=== PATIENT | male | born 1965 | race Caucasian/White ===

== ENCOUNTER 2018-10-09 13:30 | Emergency (ER) | payer OTHER, SELFPAY ==
[2018-10-09 13:35] VITALS: BP 145/92; PULSE 99; RESP 18; TEMP 36.4; O2SAT 97; BMI 42.5
--- NOTE | 2018-10-09 13:40 | DI.RAD.S_ITS ---
PROCEDURE: XR RIBS LT MIN 3V W CXR1V INDICATIONS: fall,left rib pain TECHNIQUE: 3 views of the left ribs were acquired, along with a single view chest. COMPARISON: None. FINDINGS: Surgical changes and devices: None. Bones and chest wall: No fractures or dislocations. No suspicious bony lesions. Overlying soft tissues appear unremarkable. Lungs and pleura: No pleural effusions or pneumothorax. Lungs appear clear. Mediastinum: Mediastinal contours appear normal. Heart size is normal. IMPRESSION: No visualized acute fracture or dislocation. However, if clinical concern and/or pain persist, short interval imaging followup in 7-10 days is recommended, as occult injury cannot be definitively excluded. Dictated by: Lisette Louis M.D. on 10/09/2018 at 14:08 Approved by: Lisette Louis M.D. on 10/09/2018 at 14:09
--- NOTE | 2018-10-09 14:00 | ED.FALL ---
HPI - Fall <ALEJANDRO Sheridan - Last Filed: 10/09/18 21:52> General Chief Complaint: Fall Stated Complaint: FALL LEFT SIDE MID BACK PAIN HIP PAIN Time Seen by Provider: 10/09/18 13:52 Source: patient Mode of arrival: ambulatory Limitations: no limitations History of Present Illness HPI Narrative: 53-year-old male with history of hypertension and chronic pain that currently uses E cigarette no cigarettes here for complaint of pain to his left ribcage after ground level fall yesterday. He states that he slipped while walking down front porch yesterday. He states that he landed on his left side. Pain is to the lateral left ribcage. He denies any head injury. No neck pain. No loss of consciousness. He is ambulatory into the emergency room. Increased pain with deep inspiration and movement of that area. He denies any shortness of breath no chest pain other than the left lateral ribcage area. No other concerns or complaints at this timeframe. MD complaint: fall Related Data Home Medications Medication Instructions Recorded Confirmed acetaminophen 650 mg PO Q4HP PRN #0 10/31/17 aspirin 325 mg PO QDAY #0 10/31/17 atorvastatin [Lipitor] 20 mg PO BEDTIME #0 10/31/17 10/09/18 cyclobenzaprine 10 mg PO #0 10/31/17 ibuprofen 800 mg PO TIDP PRN #0 10/31/17 lisinopril-hydrochlorothiazide 1 tab PO DAILY #0 10/31/17 10/09/18 methadone 10 mg PO BID PRN 10/09/18 10/09/18 testosterone cypionate 10/09/18 [Depo-Testosterone] Allergies Allergy/AdvReac Type Severity Reaction Status Date / Time No Known Drug Allergies Allergy Verified 10/09/18 13:35 Review of Systems <ALEJANDRO Sheridan - Last Filed: 10/09/18 21:52> Constitutional Denies chills, Denies fever(s), Denies lethargy and Denies weakness Eyes Denies change in vision, Denies eye discharge, Denies irritation and Denies loss of vision Cardiovascular Denies chest pain, Denies irregular heart rhythm, Denies lightheadedness, Denies palpitations, Denies dyspnea, Denies dyspnea on exertion and Denies orthopnea Respiratory Denies cough, Denies dyspnea, Denies dyspnea on exertion and Denies wheezing Gastrointestinal Gastrointestinal: Denies abdominal pain, Denies change in bowel habits, Denies diarrhea, Denies nausea and Denies vomiting Genitourinary Denies hematuria, Denies flank pain, Denies urinary incontinence and Denies urinary urgency Musculoskeletal Comments: Left ribcage pain Integumentary/Breasts Denies pruritus, Denies erythema, Denies rash and Denies wounds Neurologic Denies confusion, Denies loss of vision and Denies weakness Psychiatric Denies anxiety, Denies confusion, Denies depression, Denies homicidal ideation and Denies suicidal ideation Endocrine Denies palpitations Hematologic/Lymphatic Denies easy bruising Allergic/Immunologic Denies wheezing Exam <ALEJANDRO Sheridan - Last Filed: 10/09/18 21:52> Initial Vital Signs Initial Vital Signs: Vital Signs Temperature 97.6 F 10/09/18 13:35 Pulse Rate 99 H 10/09/18 13:35 Respiratory Rate 18 10/09/18 13:35 Blood Pressure 145/92 H 10/09/18 13:35 Pulse Oximetry 97 10/09/18 13:35 Const General: cooperative and well developed Nutritional Appearance: well nourished Orientation: alert, awake, oriented x3 and not confused [facility] Mouth: oral mucosae normal and moist mucous membranes Eyes Conjunctivae: conjunctivae normal Sclera: sclerae normal Pupils: PERRL EOM: EOM intact bilaterally Chest Other: Left lateral rib cage with no signs of trauma. No ecchymosis. No swelling. No deformities. Resp Effort & Inspection: normal respiratory effort, able to speak in complete sentences, no respiratory distress and no use of accessory muscles Auscultation: clear to auscultation bilaterally, no rales, no rhonchi and no wheezes Cardio Rate: regular rate Rhythm: regular rhythm Heart Sounds: no click, no gallops, no murmurs and no rubs Pulses: normal peripheral pulses Skin General: no rashes or lesions noted, No jaundice and No petechiae Neuro General: alert, oriented x3, gait normal and no focal motor deficits Speech: speech normal <Camilo Davis DO - Last Filed: 10/10/18 18:22> Initial Vital Signs Initial Vital Signs: Vital Signs Temperature 97.6 F 10/09/18 13:35 Pulse Rate 99 H 10/09/18 13:35 Respiratory Rate 18 02/12/19 13:35 Blood Pressure 145/92 H 10/09/18 13:35 Pulse Oximetry 97 10/09/18 13:35 PFSH <ALEJANDRO Sheridan - Last Filed: 10/09/18 21:52> Social History Smoking Status: Current every day smoker Social History Smoking Status: Current every day smoker Course <ALEJANDRO Sheridan - Last Filed: 10/09/18 21:52> Orders Ordered: ED Orders 10/09/18 13:40 XR ribs LT min 3V w CXR1V Stat Vital Signs - 8 hr 10/09/18 13:35 Temperature 97.6 F Pulse Rate 99 H Respiratory Rate 18 Blood Pressure 145/92 H Pulse Oximetry 97 <Camilo Davis DO - Last Filed: 10/10/18 18:22> Orders Ordered: ED Orders 10/09/18 13:40 XR ribs LT min 3V w CXR1V Stat Vital Signs - 8 hr 10/09/18 13:35 Temperature 97.6 F Pulse Rate 99 H Respiratory Rate 18 Blood Pressure 145/92 H Pulse Oximetry 97 MDM - Fall <ALEJANDRO Sheridan - Last Filed: 10/09/18 21:52> Imaging Data Rib x-ray: Radiologist's impression: [address] [address] XRay Report Signed Patient: Emiliano Almanzar [facility]#: [id number] : 1965Acct:[id number] Age/Sex: 53 / MDate of Service: 10/09/18 Loc: ED Accession Number: [id number] Procedure: XR ribs LT min 3V w CXR1V Ordering Provider: Camilo Davis D.O. PROCEDURE: XR RIBS LT MIN 3V W CXR1V INDICATIONS: fall,left rib pain TECHNIQUE: 3 views of the left ribs were acquired, along with a single view chest. COMPARISON: None. FINDINGS: Surgical changes and devices: None. Bones and chest wall: No fractures or dislocations. No suspicious bony lesions. Overlying soft tissues appear unremarkable. Lungs and pleura: No pleural effusions or pneumothorax. Lungs appear clear. Mediastinum: Mediastinal contours appear normal. Heart size is normal. IMPRESSION: No visualized acute fracture or dislocation. However, if clinical concern and/or pain persist, short interval imaging followup in 7-10 days is recommended, as occult injury cannot be definitively excluded. Dictated by: Lisette Louis M.D. on 10/09/2018 at 14:08 Approved by: Lisette Louis M.D. on 10/09/2018 at 14:09 [facility] Narrative Medical decision making narrative: X-ray of the left ribcage was obtained was negative for any acute fractures. Signs and symptoms presents as contusion to the left ribcage. Use over the counter ibuprofen and currently prescribed pain management regimen as needed for any discomfort. Follow up with primary care provider next week for re-evaluation. For any worsening symptoms return to the emergency room. Discharge Plan Departure Patient Disposition: Home Clinical Impression: Contusion of rib on left side Qualifiers: Encounter type: initial encounter Qualified Code(s): S20.212A - Contusion of left front wall of thorax, initial encounter Discharge Date/Time: 10/09/18 15:04 Interventions: ED Discharge Assessment Last Done: 10/09/18 14:50 Instructions: DI for Rib Contusion Activity Restrictions/Additional Instructions: X-ray of the left ribcage was obtained was negative for any acute fractures. Signs and symptoms presents as contusion to the left ribcage. Use over the counter ibuprofen and currently prescribed pain management regimen as needed for any discomfort. Follow up with primary care provider next week for re-evaluation. For any worsening symptoms return to the emergency room. Prescriptions: No Action atorvastatin [Lipitor] 20 MG tablet 20 mg PO BEDTIME Qty: 0 RF: 0 cyclobenzaprine 10 MG tablet 10 mg PO Qty: 0 RF: 0 lisinopril-hydrochlorothiazide 20 MG/12.5 MG tablet 1 tab PO DAILY Qty: 0 RF: 0 acetaminophen 325 MG tablet 650 mg PO Q4HP PRNQty: 0 RF: 0 ibuprofen 800 MG tablet 800 mg PO TIDP PRNQty: 0 RF: 0 aspirin 325 MG tablet,delayed release (DR/EC) 325 mg PO QDAY Qty: 0 RF: 0 methadone 10 mg tablet 10 mg PO BID PRN (Reason: Pain, Severe) RF: 0 testosterone cypionate [Depo-Testosterone] 100 mg/mL oil RF: 0 Referrals: Cassi Johnson DO [Primary Care Provider] - <Camilo Davis DO - Last Filed: 10/10/18 18:22> Cosign ED Attending Óscar Attestation: I was immediately available in the department for consultation. Documentation has been reviewed. I agree with assessment and plan.
--- NOTE | 2018-10-09 14:04 | ED_ITS ---
HPI - Fall <ALEJANDRO Sheridan - Last Filed: 10/09/18 21:52> General Chief Complaint: Fall Stated Complaint: FALL LEFT SIDE MID BACK PAIN HIP PAIN Time Seen by Provider: 10/09/18 13:52 Source: patient Mode of arrival: ambulatory Limitations: no limitations History of Present Illness HPI Narrative: 53-year-old male with history of hypertension and chronic pain that currently uses E cigarette no cigarettes here for complaint of pain to his left ribcage after ground level fall yesterday. He states that he slipped while walking down front porch yesterday. He states that he landed on his left side. Pain is to the lateral left ribcage. He denies any head injury. No neck pain. No loss of consciousness. He is ambulatory into the emergency room. Increased pain with deep inspiration and movement of that area. He denies any shortness of breath no chest pain other than the left lateral ribcage area. No other concerns or complaints at this timeframe. MD complaint: fall Related Data Home Medications Medication Instructions Recorded Confirmed acetaminophen 650 mg PO Q4HP PRN #0 10/31/17 aspirin 325 mg PO QDAY #0 10/31/17 atorvastatin [Lipitor] 20 mg PO BEDTIME #0 10/31/17 10/09/18 cyclobenzaprine 10 mg PO #0 10/31/17 ibuprofen 800 mg PO TIDP PRN #0 10/31/17 lisinopril-hydrochlorothiazide 1 tab PO DAILY #0 10/31/17 10/09/18 methadone 10 mg PO BID PRN 10/09/18 10/09/18 testosterone cypionate 10/09/18 [Depo-Testosterone] Allergies Allergy/AdvReac Type Severity Reaction Status Date / Time No Known Drug Allergies Allergy Verified 10/09/18 13:35 Review of Systems <ALEJANDRO Sheridan - Last Filed: 10/09/18 21:52> Constitutional Denies chills, Denies fever(s), Denies lethargy and Denies weakness Eyes Denies change in vision, Denies eye discharge, Denies irritation and Denies loss of vision Cardiovascular Denies chest pain, Denies irregular heart rhythm, Denies lightheadedness, Denies palpitations, Denies dyspnea, Denies dyspnea on exertion and Denies orthopnea Respiratory Denies cough, Denies dyspnea, Denies dyspnea on exertion and Denies wheezing Gastrointestinal Gastrointestinal: Denies abdominal pain, Denies change in bowel habits, Denies diarrhea, Denies nausea and Denies vomiting Genitourinary Denies hematuria, Denies flank pain, Denies urinary incontinence and Denies urinary urgency Musculoskeletal Comments: Left ribcage pain Integumentary/Breasts Denies pruritus, Denies erythema, Denies rash and Denies wounds Neurologic Denies confusion, Denies loss of vision and Denies weakness Psychiatric Denies anxiety, Denies confusion, Denies depression, Denies homicidal ideation and Denies suicidal ideation Endocrine Denies palpitations Hematologic/Lymphatic Denies easy bruising Allergic/Immunologic Denies wheezing Exam <ALEJANDRO Sheridan - Last Filed: 10/09/18 21:52> Initial Vital Signs Initial Vital Signs: Vital Signs Temperature 97.6 F 10/09/18 13:35 Pulse Rate 99 H 10/09/18 13:35 Respiratory Rate 18 10/09/18 13:35 Blood Pressure 145/92 H 10/09/18 13:35 Pulse Oximetry 97 10/09/18 13:35 Const General: cooperative and well developed Nutritional Appearance: well nourished Orientation: alert, awake, oriented x3 and not confused [facility] Mouth: oral mucosae normal and moist mucous membranes Eyes Conjunctivae: conjunctivae normal Sclera: sclerae normal Pupils: PERRL EOM: EOM intact bilaterally Chest Other: Left lateral rib cage with no signs of trauma. No ecchymosis. No swelling. No deformities. Resp Effort & Inspection: normal respiratory effort, able to speak in complete sentences, no respiratory distress and no use of accessory muscles Auscultation: clear to auscultation bilaterally, no rales, no rhonchi and no wheezes Cardio Rate: regular rate Rhythm: regular rhythm Heart Sounds: no click, no gallops, no murmurs and no rubs Pulses: normal peripheral pulses Skin General: no rashes or lesions noted, No jaundice and No petechiae Neuro General: alert, oriented x3, gait normal and no focal motor deficits Speech: speech normal <Camilo Davis DO - Last Filed: 10/10/18 18:22> Initial Vital Signs Initial Vital Signs: Vital Signs Temperature 97.6 F 10/09/18 13:35 Pulse Rate 99 H 10/09/18 13:35 Respiratory Rate 18 02/12/19 13:35 Blood Pressure 145/92 H 10/09/18 13:35 Pulse Oximetry 97 10/09/18 13:35 PFSH <ALEJANDRO Sheridan - Last Filed: 10/09/18 21:52> Social History Smoking Status: Current every day smoker Social History Smoking Status: Current every day smoker Course <ALEJANDRO Sheridan - Last Filed: 10/09/18 21:52> Orders Ordered: ED Orders 10/09/18 13:40 XR ribs LT min 3V w CXR1V Stat Vital Signs - 8 hr 10/09/18 13:35 Temperature 97.6 F Pulse Rate 99 H Respiratory Rate 18 Blood Pressure 145/92 H Pulse Oximetry 97 <Camilo Davis DO - Last Filed: 10/10/18 18:22> Orders Ordered: ED Orders 10/09/18 13:40 XR ribs LT min 3V w CXR1V Stat Vital Signs - 8 hr 10/09/18 13:35 Temperature 97.6 F Pulse Rate 99 H Respiratory Rate 18 Blood Pressure 145/92 H Pulse Oximetry 97 MDM - Fall <ALEJANDRO Sheridan - Last Filed: 10/09/18 21:52> Imaging Data Rib x-ray: Radiologist's impression: [address] [address] XRay Report Signed Patient: Emiliano Almanzar [facility]#: [id number] : 1965Acct:[id number] Age/Sex: 53 / MDate of Service: 10/09/18 Loc: ED Accession Number: [id number] Procedure: XR ribs LT min 3V w CXR1V Ordering Provider: Camilo Davis D.O. PROCEDURE: XR RIBS LT MIN 3V W CXR1V INDICATIONS: fall,left rib pain TECHNIQUE: 3 views of the left ribs were acquired, along with a single view chest. COMPARISON: None. FINDINGS: Surgical changes and devices: None. Bones and chest wall: No fractures or dislocations. No suspicious bony lesions. Overlying soft tissues appear unremarkable. Lungs and pleura: No pleural effusions or pneumothorax. Lungs appear clear. Mediastinum: Mediastinal contours appear normal. Heart size is normal. IMPRESSION: No visualized acute fracture or dislocation. However, if clinical concern and/or pain persist, short interval imaging followup in 7-10 days is recommended, as occult injury cannot be definitively excluded. Dictated by: Lisette Louis M.D. on 10/09/2018 at 14:08 Approved by: Lisette Loius M.D. on 10/09/2018 at 14:09 [facility] Narrative Medical decision making narrative: X-ray of the left ribcage was obtained was negative for any acute fractures. Signs and symptoms presents as contusion to the left ribcage. Use over the counter ibuprofen and currently prescribed pain management regimen as needed for any discomfort. Follow up with primary care provider next week for re-evaluation. For any worsening symptoms return to the emergency room. Discharge Plan Departure Patient Disposition: Home Clinical Impression: Contusion of rib on left side Qualifiers: Encounter type: initial encounter Qualified Code(s): S20.212A - Contusion of left front wall of thorax, initial encounter Discharge Date/Time: 10/09/18 15:04 Interventions: ED Discharge Assessment Last Done: 10/09/18 14:50 Instructions: DI for Rib Contusion Activity Restrictions/Additional Instructions: X-ray of the left ribcage was obtained was negative for any acute fractures. Signs and symptoms presents as contusion to the left ribcage. Use over the counter ibuprofen and currently prescribed pain management regimen as needed for any discomfort. Follow up with primary care provider next week for re- evaluation. For any worsening symptoms return to the emergency room. Prescriptions: No Action atorvastatin [Lipitor] 20 MG tablet 20 mg PO BEDTIME Qty: 0 RF: 0 cyclobenzaprine 10 MG tablet 10 mg PO Qty: 0 RF: 0 lisinopril-hydrochlorothiazide 20 MG/12.5 MG tablet 1 tab PO DAILY Qty: 0 RF: 0 acetaminophen 325 MG tablet 650 mg PO Q4HP PRNQty: 0 RF: 0 ibuprofen 800 MG tablet 800 mg PO TIDP PRNQty: 0 RF: 0 aspirin 325 MG tablet,delayed release (DR/EC) 325 mg PO QDAY Qty: 0 RF: 0 methadone 10 mg tablet 10 mg PO BID PRN (Reason: Pain, Severe) RF: 0 testosterone cypionate [Depo-Testosterone] 100 mg/mL oil RF: 0 Referrals: Cassi Johnson DO [Primary Care Provider] - <Camilo Davis DO - Last Filed: 10/10/18 18:22> Cosign ED Attending Óscar Attestation: I was immediately available in the department for consultation. Documentation has been reviewed. I agree with assessment and plan.
== END 2018-10-09 15:04 | disposition home or self-care (01) ==
PROVIDERS: Emergency Provider Nurse Practitioner Family; Family Provider Family Medicine; PCP Family Medicine
DX: S20.212A Contusion of left front wall of thorax, initial encounter (principal); W18.43XA Slipping, tripping and stumbling without falling due to stepping from one level to another, initial encounter
CPT/HCPCS: 71101; 99282; 99283

== ENCOUNTER 2018-12-24 15:36 | Emergency (ER) | payer OTHER, SELFPAY ==
[2018-12-24 15:54] VITALS: BP 136/88; PULSE 112; RESP 18; TEMP 37.1; O2SAT 97; BMI 41.4
--- NOTE | 2018-12-24 15:59 | DI.RAD.S_ITS ---
PROCEDURE: XR CHEST 2V INDICATIONS: upper resp symptoms TECHNIQUE: 2 views of the chest were acquired. COMPARISON: None. FINDINGS: Surgical changes and devices: None. Lungs and pleura: Lungs are clear. No pleural effusions or pneumothorax. Mediastinum: Mediastinal contours are normal. Heart size is normal. Bones and chest wall: No suspicious bony abnormalities. Soft tissues appear unremarkable. IMPRESSION: Normal for age, source of current pneumonia symptoms is not seen. Dictated by: Nabil Dominguez M.D. on 12/24/2018 at 16:15 Approved by: Nabil Dominguez M.D. on 12/24/2018 at 16:15
--- NOTE | 2018-12-24 16:29 | ED.URI ---
HPI - URI/Sore Throat <Mariela Mcelroy PA-C - Last Filed: 12/24/18 22:21> General Chief Complaint: Upper Respiratory Symptoms Stated Complaint: sore throat,cough Time Seen by Provider: 12/24/18 16:21 Source: patient Mode of arrival: ambulatory Limitations: no limitations History of Present Illness HPI Narrative: This 53-year-old male comes to ED secondary to concern for recurrent pneumonia. He states that last night he went to bed with some nonspecific fatigue and malaise, then he woke up several times in the night coughing up phlegm. He has been bringing up more sputum today and states his voice has been hoarse. He states that there were a few rust-colored specks in his sputum after 1 episode of hard coughing, thought just related to that. He states that during 1 of his cough fits his chest started to feel achy, like a slight pressure. He states he has history of reactive airways and does not have any acute wheeze or shortness of breath, has not used his nebulizer at home. He describes the chest discomfort as and air hunger sensation rather than a pain. he states that he has had some nasal congestion for a couple of days and did have some generalized body aches yesterday with chills and sweats this morning (no temperatures taking). He states other family members have been sick prior to him with upper respiratory symptoms. he denies any recent travel. He denies any nausea or lightheadedness and has been going about his usual activities today. He denies any swelling or pain in the extremities or any other new symptoms on systems review. He notes he has been taking Sudafed for nasal congestion Related Data Home Medications Medication Instructions Recorded Confirmed acetaminophen 650 mg PO Q4HP PRN #0 10/31/17 aspirin 325 mg PO QDAY #0 10/31/17 atorvastatin [Lipitor] 20 mg PO BEDTIME #0 10/31/17 12/24/18 cyclobenzaprine 10 mg PO #0 10/31/17 ibuprofen 800 mg PO TIDP PRN #0 10/31/17 lisinopril-hydrochlorothiazide 1 tab PO DAILY #0 10/31/17 12/24/18 methadone 10 mg PO BID PRN 10/09/18 12/24/18 metformin 750 mg PO BID 12/24/18 12/24/18 testosterone cypionate 12/24/18 [Depo-Testosterone] Previous Rx's Medication Instructions Recorded albuterol sulfate 2.5 mg INHALATION Q2H PRN #90 ml 12/24/18 promethazine-codeine 5 ml PO Q4-6H PRN #118 ml 12/24/18 Allergies Allergy/AdvReac Type Severity Reaction Status Date / Time No Known Drug Allergies Allergy Verified 10/09/18 13:35 Review of Systems <Mariela Mcelroy PA-C - Last Filed: 12/24/18 22:21> Review of Systems ROS Unobtainable: All systems reviewed & are unremarkable except as noted in HPI and below PFSH <Mariela Mcelroy PA-C - Last Filed: 12/24/18 22:21> Medical History (Updated 12/24/18 @ 18:27 by Mariela Mcelroy PA-C) HTN (hypertension) (Chronic) Hyperlipidemia (Chronic) 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 HEAD: No sinus TTP. EYES: PERRL, EOMI. EARS: Normal auditory canals, TMS intact with normal light reflexes. ORAL CAVITY: Normal oropharynx. THROAT: Mild erythema, no exudate NECK/THYROID: Neck supple, full range of motion, no cervical lymphadenopathy. LUNGS: Clear to auscultation bilaterally, occasional cough on exam. HEART: RRR without murmur, nl S1, S2, no S3 or S4. CHEST: No tenderness to palpation EXTREMITIES: No edema, no calf tenderness Initial Vital Signs Initial Vital Signs: Vital Signs Temperature 98.7 F 12/24/18 15:54 Pulse Rate 112 H 12/24/18 15:54 Respiratory Rate 18 12/24/18 15:54 Blood Pressure 136/88 12/24/18 15:54 Pulse Oximetry 97 12/24/18 15:54 <Maureen Weinstein DO - Last Filed: 12/27/18 07:51> Initial Vital Signs Initial Vital Signs: Vital Signs Temperature 98.7 F 12/24/18 15:54 Pulse Rate 112 H 12/24/18 15:54 Respiratory Rate 18 12/24/18 15:54 Blood Pressure 136/88 12/24/18 15:54 Pulse Oximetry 97 12/24/18 15:54 Course <Mariela Mcelroy PA-C - Last Filed: 12/24/18 22:21> Additional Information: Patient reported improvement following nebulizer treatment. He does have exposure to sick contacts. Suspect his tachycardia may be related to Sudafed use nebulizer treatments well. he does have a history of recurrent pneumonia and will follow up with his PCP in the next 2 days for recheck, agreed to return sooner if any acutely worsening symptoms. Orders Ordered: Discontinued Medications Albuterol (Ventolin) 2.5 mg INH NOW ONE Stop: 12/24/18 17:12 Last Admin: 12/24/18 17:13 Dose: 2.5 mg Albuterol/Ipratropium (Duoneb) 3 ml INH NOW ONE Stop: 12/24/18 17:12 Last Admin: 12/24/18 17:13 Dose: 3 ml Sodium Chloride (Normal Saline 0.9%) 1,000 mls @ 1,000 mls/hr IV BOLUS ONE Stop: 12/24/18 17:47 Last Infusion: 12/24/18 18:26 Dose: 0 mls/hr Admin: 12/24/18 17:01 Dose: 1,000 mls/hr Vital Signs - 8 hr 12/24/18 15:54 12/24/18 16:42 12/24/18 17:13 Temperature 98.7 F Pulse Rate 112 H 117 H 102 H Respiratory Rate 18 24 14 Blood Pressure 136/88 Blood Pressure [Left Arm] 119/67 Pulse Oximetry 97 111 H 98 12/24/18 17:30 12/24/18 18:33 Temperature Pulse Rate 126 H 112 H Respiratory Rate 13 22 Blood Pressure 106/64 Blood Pressure [Left Arm] 109/72 Pulse Oximetry 97 95 <Maureen Weinstein DO - Last Filed: 12/27/18 07:51> Orders Ordered: Discontinued Medications Albuterol (Ventolin) 2.5 mg INH NOW ONE Stop: 12/24/18 17:12 Last Admin: 12/24/18 17:13 Dose: 2.5 mg Albuterol/Ipratropium (Duoneb) 3 ml INH NOW ONE Stop: 12/24/18 17:12 Last Admin: 12/24/18 17:13 Dose: 3 ml Sodium Chloride (Normal Saline 0.9%) 1,000 mls @ 1,000 mls/hr IV BOLUS ONE Stop: 12/24/18 17:47 Last Infusion: 12/24/18 18:26 Dose: 0 mls/hr Admin: 12/24/18 17:01 Dose: 1,000 mls/hr Vital Signs - 8 hr 12/24/18 15:54 12/24/18 16:42 12/24/18 17:13 Temperature 98.7 F Pulse Rate 112 H 117 H 102 H Respiratory Rate 18 24 14 Blood Pressure 136/88 Blood Pressure [Left Arm] 119/67 Pulse Oximetry 97 111 H 98 12/24/18 17:30 12/24/18 18:33 Temperature Pulse Rate 126 H 112 H Respiratory Rate 13 22 Blood Pressure 106/64 Blood Pressure [Left Arm] 109/72 Pulse Oximetry 97 95 MDM - URI/Sore Throat <Mariela Mcelroy PA-C - Last Filed: 12/24/18 22:21> Lab Data Attestation: I reviewed the patient's lab results. Result diagrams: 12/24/18 16:56 12/24/18 16:56 Lab Results 12/24/18 12/24/18 12/24/18 Range/Units 16:56 16:56 16:56 WBC 11.4 H (4.5-11.0) X10^3/uL RBC 5.36 (4.5-5.9) X10^6/uL Hgb 15.8 (13.5-17.5) g/dL Hct 47.0 (41-53) % MCV 87.8 (80-100) fL MCH 29.5 (26-34) PG MCHC 33.5 (30-36) % RDW 13.2 (11.6-14.8) % Plt Count 179 (150-400) X10^3/uL Neut % (Auto) 77.7 H (50-75) % Lymph % (Auto) 12.6 L (25-40) % [place] % (Auto) 7.5 (3-14) % Eos % (Auto) 1.4 L (2-4) % Baso % (Auto) 0.8 (0-2) % Neut # (Auto) 8800 H (3603-0945) /uL Lymph # (Auto) 1400 (1187-3216) /uL [place] # (Auto) 900 (0-900) /uL Eos # (Auto) 200 (0-450) /uL Baso # (Auto) 100 (0-100) /uL PT 10.9 (10.1-12.7) SECONDS INR 0.9 (0.9-1.3) APTT 29 (26.4-36.2) SECONDS D-Dimer (<230) ng/mL Sodium (137-145) mmol/L Potassium (3.4-5.1) mmol/L Chloride (98-107) mmol/L Carbon Dioxide (22-32) mmol/L BUN (9-20) mg/dL Creatinine (0.66-1.25) mg/dL Estimated GFR (>60) mL/min BUN/Creatinine Ratio (6-22) Glucose (70-100) mg/dL Lactate (0.7-2.1) mmol/L Calcium (8.4-10.2) mg/dL Total Bilirubin (0.2-1.3) mg/dL AST (17-59) IU/L ALT (21-72) IU/L Alkaline Phosphatase (38-126) U/L Total Creatine Kinase (55-170) U/L CK-MB (CK-2) (<2.37) ng/mL CK-MB (CK-2) Rel Index (1.5-5.0) % Troponin I (0.01-0.034) ng/mL Total Protein (6.3-8.2) g/dL Albumin (3.5-5.0) g/dL Globulin (1.7-4.1) g/dL Albumin/Globulin Ratio (1.0-2.8) Lipase (23-300) U/L Procalcitonin < 0.05 (<0.5) ng/mL Influenza A & B (PCR) (Negative) 12/24/18 12/24/18 12/24/18 Range/Units 16:56 16:56 16:56 WBC (4.5-11.0) X10^3/uL RBC (4.5-5.9) X10^6/uL Hgb (13.5-17.5) g/dL Hct (41-53) % MCV (80-100) fL MCH (26-34) PG MCHC (30-36) % RDW (11.6-14.8) % Plt Count (150-400) X10^3/uL Neut % (Auto) (50-75) % Lymph % (Auto) (25-40) % [place] % (Auto) (3-14) % Eos % (Auto) (2-4) % Baso % (Auto) (0-2) % Neut # (Auto) (4523-5924) /uL Lymph # (Auto) (5610-5869) /uL [place] # (Auto) (0-900) /uL Eos # (Auto) (0-450) /uL Baso # (Auto) (0-100) /uL PT (10.1-12.7) SECONDS INR (0.9-1.3) APTT (26.4-36.2) SECONDS D-Dimer 205 (<230) ng/mL Sodium 135 L (137-145) mmol/L Potassium 4.0 (3.4-5.1) mmol/L Chloride 94 L (98-107) mmol/L Carbon Dioxide 29 (22-32) mmol/L BUN 11 (9-20) mg/dL Creatinine 1.00 (0.66-1.25) mg/dL Estimated GFR > 60.0 (>60) mL/min BUN/Creatinine Ratio 11.0 (6-22) Glucose 276 H (70-100) mg/dL Lactate 1.7 (0.7-2.1) mmol/L Calcium 10.2 (8.4-10.2) mg/dL Total Bilirubin 0.8 (0.2-1.3) mg/dL AST 30 (17-59) IU/L ALT 66 (21-72) IU/L Alkaline Phosphatase 89 (38-126) U/L Total Creatine Kinase (55-170) U/L CK-MB (CK-2) (<2.37) ng/mL CK-MB (CK-2) Rel Index (1.5-5.0) % Troponin I (0.01-0.034) ng/mL Total Protein 8.0 (6.3-8.2) g/dL Albumin 4.8 (3.5-5.0) g/dL Globulin 3.2 (1.7-4.1) g/dL Albumin/Globulin Ratio 1.5 (1.0-2.8) Lipase 82 (23-300) U/L Procalcitonin (<0.5) ng/mL Influenza A & B (PCR) (Negative) 12/24/18 12/24/18 Range/Units 16:56 16:56 WBC (4.5-11.0) X10^3/uL RBC (4.5-5.9) X10^6/uL Hgb (13.5-17.5) g/dL Hct (41-53) % MCV (80-100) fL MCH (26-34) PG MCHC (30-36) % RDW (11.6-14.8) % Plt Count (150-400) X10^3/uL Neut % (Auto) (50-75) % Lymph % (Auto) (25-40) % [place] % (Auto) (3-14) % Eos % (Auto) (2-4) % Baso % (Auto) (0-2) % Neut # (Auto) (9052-1316) /uL Lymph # (Auto) (8791-0601) /uL [place] # (Auto) (0-900) /uL Eos # (Auto) (0-450) /uL Baso # (Auto) (0-100) /uL PT (10.1-12.7) SECONDS INR (0.9-1.3) APTT (26.4-36.2) SECONDS D-Dimer (<230) ng/mL Sodium (137-145) mmol/L Potassium (3.4-5.1) mmol/L Chloride (98-107) mmol/L Carbon Dioxide (22-32) mmol/L BUN (9-20) mg/dL Creatinine (0.66-1.25) mg/dL Estimated GFR (>60) mL/min BUN/Creatinine Ratio (6-22) Glucose (70-100) mg/dL Lactate (0.7-2.1) mmol/L Calcium (8.4-10.2) mg/dL Total Bilirubin (0.2-1.3) mg/dL AST (17-59) IU/L ALT (21-72) IU/L Alkaline Phosphatase (38-126) U/L Total Creatine Kinase 104 (55-170) U/L CK-MB (CK-2) 1.62 (<2.37) ng/mL CK-MB (CK-2) Rel Index 1.6 (1.5-5.0) % Troponin I < 0.012 (0.01-0.034) ng/mL Total Protein (6.3-8.2) g/dL Albumin (3.5-5.0) g/dL Globulin (1.7-4.1) g/dL Albumin/Globulin Ratio (1.0-2.8) Lipase (23-300) U/L Procalcitonin (<0.5) ng/mL Influenza A & B (PCR) Negative (Negative) ECG Data Attestation: I personally reviewed and interpreted this ECG as follows: (Sinus tachycardia rate 108, normal axis) <Maureen Weinstein DO - Last Filed: 12/27/18 07:51> Lab Data Lab Results 12/24/18 12/24/18 12/24/18 Range/Units 16:56 16:56 16:56 WBC 11.4 H (4.5-11.0) X10^3/uL RBC 5.36 (4.5-5.9) X10^6/uL Hgb 15.8 (13.5-17.5) g/dL Hct 47.0 (41-53) % MCV 87.8 (80-100) fL MCH 29.5 (26-34) PG MCHC 33.5 (30-36) % RDW 13.2 (11.6-14.8) % Plt Count 179 (150-400) X10^3/uL Neut % (Auto) 77.7 H (50-75) % Lymph % (Auto) 12.6 L (25-40) % [place] % (Auto) 7.5 (3-14) % Eos % (Auto) 1.4 L (2-4) % Baso % (Auto) 0.8 (0-2) % Neut # (Auto) 8800 H (1035-6849) /uL Lymph # (Auto) 1400 (4962-7755) /uL [place] # (Auto) 900 (0-900) /uL Eos # (Auto) 200 (0-450) /uL Baso # (Auto) 100 (0-100) /uL PT 10.9 (10.1-12.7) SECONDS INR 0.9 (0.9-1.3) APTT 29 (26.4-36.2) SECONDS D-Dimer (<230) ng/mL Sodium (137-145) mmol/L Potassium (3.4-5.1) mmol/L Chloride (98-107) mmol/L Carbon Dioxide (22-32) mmol/L BUN (9-20) mg/dL Creatinine (0.66-1.25) mg/dL Estimated GFR (>60) mL/min BUN/Creatinine Ratio (6-22) Glucose (70-100) mg/dL Lactate (0.7-2.1) mmol/L Calcium (8.4-10.2) mg/dL Total Bilirubin (0.2-1.3) mg/dL AST (17-59) IU/L ALT (21-72) IU/L Alkaline Phosphatase (38-126) U/L Total Creatine Kinase (55-170) U/L CK-MB (CK-2) (<2.37) ng/mL CK-MB (CK-2) Rel Index (1.5-5.0) % Troponin I (0.01-0.034) ng/mL Total Protein (6.3-8.2) g/dL Albumin (3.5-5.0) g/dL Globulin (1.7-4.1) g/dL Albumin/Globulin Ratio (1.0-2.8) Lipase (23-300) U/L Procalcitonin < 0.05 (<0.5) ng/mL Influenza A & B (PCR) (Negative) 12/24/18 12/24/18 12/24/18 Range/Units 16:56 16:56 16:56 WBC (4.5-11.0) X10^3/uL RBC (4.5-5.9) X10^6/uL Hgb (13.5-17.5) g/dL Hct (41-53) % MCV (80-100) fL MCH (26-34) PG MCHC (30-36) % RDW (11.6-14.8) % Plt Count (150-400) X10^3/uL Neut % (Auto) (50-75) % Lymph % (Auto) (25-40) % [place] % (Auto) (3-14) % Eos % (Auto) (2-4) % Baso % (Auto) (0-2) % Neut # (Auto) (3245-8445) /uL Lymph # (Auto) (2097-3593) /uL [place] # (Auto) (0-900) /uL Eos # (Auto) (0-450) /uL Baso # (Auto) (0-100) /uL PT (10.1-12.7) SECONDS INR (0.9-1.3) APTT (26.4-36.2) SECONDS D-Dimer 205 (<230) ng/mL Sodium 135 L (137-145) mmol/L Potassium 4.0 (3.4-5.1) mmol/L Chloride 94 L (98-107) mmol/L Carbon Dioxide 29 (22-32) mmol/L BUN 11 (9-20) mg/dL Creatinine 1.00 (0.66-1.25) mg/dL Estimated GFR > 60.0 (>60) mL/min BUN/Creatinine Ratio 11.0 (6-22) Glucose 276 H (70-100) mg/dL Lactate 1.7 (0.7-2.1) mmol/L Calcium 10.2 (8.4-10.2) mg/dL Total Bilirubin 0.8 (0.2-1.3) mg/dL AST 30 (17-59) IU/L ALT 66 (21-72) IU/L Alkaline Phosphatase 89 (38-126) U/L Total Creatine Kinase (55-170) U/L CK-MB (CK-2) (<2.37) ng/mL CK-MB (CK-2) Rel Index (1.5-5.0) % Troponin I (0.01-0.034) ng/mL Total Protein 8.0 (6.3-8.2) g/dL Albumin 4.8 (3.5-5.0) g/dL Globulin 3.2 (1.7-4.1) g/dL Albumin/Globulin Ratio 1.5 (1.0-2.8) Lipase 82 (23-300) U/L Procalcitonin (<0.5) ng/mL Influenza A & B (PCR) (Negative) 12/24/18 12/24/18 Range/Units 16:56 16:56 WBC (4.5-11.0) X10^3/uL RBC (4.5-5.9) X10^6/uL Hgb (13.5-17.5) g/dL Hct (41-53) % MCV (80-100) fL MCH (26-34) PG MCHC (30-36) % RDW (11.6-14.8) % Plt Count (150-400) X10^3/uL Neut % (Auto) (50-75) % Lymph % (Auto) (25-40) % [place] % (Auto) (3-14) % Eos % (Auto) (2-4) % Baso % (Auto) (0-2) % Neut # (Auto) (5350-9988) /uL Lymph # (Auto) (6918-1311) /uL [place] # (Auto) (0-900) /uL Eos # (Auto) (0-450) /uL Baso # (Auto) (0-100) /uL PT (10.1-12.7) SECONDS INR (0.9-1.3) APTT (26.4-36.2) SECONDS D-Dimer (<230) ng/mL Sodium (137-145) mmol/L Potassium (3.4-5.1) mmol/L Chloride (98-107) mmol/L Carbon Dioxide (22-32) mmol/L BUN (9-20) mg/dL Creatinine (0.66-1.25) mg/dL Estimated GFR (>60) mL/min BUN/Creatinine Ratio (6-22) Glucose (70-100) mg/dL Lactate (0.7-2.1) mmol/L Calcium (8.4-10.2) mg/dL Total Bilirubin (0.2-1.3) mg/dL AST (17-59) IU/L ALT (21-72) IU/L Alkaline Phosphatase (38-126) U/L Total Creatine Kinase 104 (55-170) U/L CK-MB (CK-2) 1.62 (<2.37) ng/mL CK-MB (CK-2) Rel Index 1.6 (1.5-5.0) % Troponin I < 0.012 (0.01-0.034) ng/mL Total Protein (6.3-8.2) g/dL Albumin (3.5-5.0) g/dL Globulin (1.7-4.1) g/dL Albumin/Globulin Ratio (1.0-2.8) Lipase (23-300) U/L Procalcitonin (<0.5) ng/mL Influenza A & B (PCR) Negative (Negative) Discharge Plan Departure Patient Disposition: Home Clinical Impression: Bronchitis RAD (reactive airway disease) Qualifiers: Asthma severity: mild Asthma persistence: intermittent Asthma complication type: with acute exacerbation Qualified Code(s): J45.21 - Mild intermittent asthma with (acute) exacerbation Discharge Date/Time: 12/24/18 18:35 Interventions: ED Discharge Assessment Last Done: 12/24/18 18:33 Instructions: DI for Acute Bronchitis, DI for Reactive Airway Disease-Adult Activity Restrictions/Additional Instructions: Your testing did not show any acute problem to explain your chest discomfort today such as pneumonia or heart problems, and suspect since this is associated with cough and phlegm that you have bronchitis since others in her household have been sick as well. most of the time, this is due to a virus, and in your case, it exacerbates your reactive airways/asthma symptoms. Please return to the ED as we discussed if you have any acutely worsening symptoms. Otherwise, please follow-up with your PCP in the next couple of days to assess your progress and determine whether a repeat x-ray or further testing is needed. Use your nebulizer as often as needed to help with tight chest. You can use the prescription cough syrup at nighttime but remember this can make you sleepy and not to use during the day. Please add some [id number] guaifenesin (i.e. Mucinex) to help with your chest congestion. Your pulse was somewhat elevated today, however this could be due to you using Sudafed and then also having the nebulizer treatments. Prescriptions: New albuterol sulfate 2.5 mg /3 mL (0.083 %) solution for nebulization 2.5 mg INHALATION Q2H PRN (Reason: shortness of breath or wheezing) Qty: 90 RF: 0 promethazine-codeine 6.25-10 mg/5 mL syrup 5 ml PO Q4-6H PRN (Reason: cough at hs) Qty: 118 RF: 0 No Action atorvastatin [Lipitor] 20 MG tablet 20 mg PO BEDTIME Qty: 0 RF: 0 cyclobenzaprine 10 MG tablet 10 mg PO Qty: 0 RF: 0 lisinopril-hydrochlorothiazide 20 MG/12.5 MG tablet 1 tab PO DAILY Qty: 0 RF: 0 acetaminophen 325 MG tablet 650 mg PO Q4HP PRNQty: 0 RF: 0 ibuprofen 800 MG tablet 800 mg PO TIDP PRNQty: 0 RF: 0 aspirin 325 MG tablet,delayed release (DR/EC) 325 mg PO QDAY Qty: 0 RF: 0 testosterone cypionate [Depo-Testosterone] 200 mg/mL oil RF: 0 metformin 750 mg tablet extended release 24 hr 750 mg PO BID RF: 0 methadone 10 mg tablet 10 mg PO BID PRN (Reason: Pain, Severe) RF: 0 Referrals: Cassi Johnson DO [Primary Care Provider] - <Maureen Weinstein DO - Last Filed: 12/27/18 07:51> Cosign ED Attending Óscar Attestation: I was immediately available in the department for consultation. Documentation has been reviewed. I agree with assessment and plan.
[2018-12-24 16:42] VITALS: BP 119/67; PULSE 117; RESP 24; O2SAT 111
[2018-12-24] MEDS: SODIUM CHLORIDE 0.9% 1,000 ML 1000 ML IV (17:01)
--- NOTE | 2018-12-24 17:02 | ED_ITS ---
HPI - URI/Sore Throat <Mariela Mcelroy PA-C - Last Filed: 12/24/18 22:21> General Chief Complaint: Upper Respiratory Symptoms Stated Complaint: sore throat,cough Time Seen by Provider: 12/24/18 16:21 Source: patient Mode of arrival: ambulatory Limitations: no limitations History of Present Illness HPI Narrative: This 53-year-old male comes to ED secondary to concern for recurrent pneumonia. He states that last night he went to bed with some nonspecific fatigue and malaise, then he woke up several times in the night coughing up phlegm. He has been bringing up more sputum today and states his voice has been hoarse. He states that there were a few rust-colored specks in his sputum after 1 episode of hard coughing, thought just related to that. He states that during 1 of his cough fits his chest started to feel achy, like a slight pressure. He states he has history of reactive airways and does not have any acute wheeze or shortness of breath, has not used his nebulizer at home. He describes the chest discomfort as and air hunger sensation rather than a pain. he states that he has had some nasal congestion for a couple of days and did have some generalized body aches yesterday with chills and sweats this morning (no temperatures taking). He states other family members have been sick prior to him with upper respiratory symptoms. he denies any recent travel. He denies any nausea or lightheadedness and has been going about his usual activities today. He denies any swelling or pain in the extremities or any other new symptoms on systems review. He notes he has been taking Sudafed for nasal congestion Related Data Home Medications Medication Instructions Recorded Confirmed acetaminophen 650 mg PO Q4HP PRN #0 10/31/17 aspirin 325 mg PO QDAY #0 10/31/17 atorvastatin [Lipitor] 20 mg PO BEDTIME #0 10/31/17 12/24/18 cyclobenzaprine 10 mg PO #0 10/31/17 ibuprofen 800 mg PO TIDP PRN #0 10/31/17 lisinopril-hydrochlorothiazide 1 tab PO DAILY #0 10/31/17 12/24/18 methadone 10 mg PO BID PRN 10/09/18 12/24/18 metformin 750 mg PO BID 12/24/18 12/24/18 testosterone cypionate 12/24/18 [Depo-Testosterone] Previous Rx's Medication Instructions Recorded albuterol sulfate 2.5 mg INHALATION Q2H PRN #90 ml 12/24/18 promethazine-codeine 5 ml PO Q4-6H PRN #118 ml 12/24/18 Allergies Allergy/AdvReac Type Severity Reaction Status Date / Time No Known Drug Allergies Allergy Verified 10/09/18 13:35 Review of Systems <Mariela Mcelroy PA-C - Last Filed: 12/24/18 22:21> Review of Systems ROS Unobtainable: All systems reviewed & are unremarkable except as noted in HPI and below PFSH <Mariela Mcelroy PA-C - Last Filed: 12/24/18 22:21> Medical History (Updated 12/24/18 @ 18:27 by Mariela Mcelroy PA-C) HTN (hypertension) (Chronic) Hyperlipidemia (Chronic) 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 HEAD: No sinus TTP. EYES: PERRL, EOMI. EARS: Normal auditory canals, TMS intact with normal light reflexes. ORAL CAVITY: Normal oropharynx. THROAT: Mild erythema, no exudate NECK/THYROID: Neck supple, full range of motion, no cervical lymphadenopathy. LUNGS: Clear to auscultation bilaterally, occasional cough on exam. HEART: RRR without murmur, nl S1, S2, no S3 or S4. CHEST: No tenderness to palpation EXTREMITIES: No edema, no calf tenderness Initial Vital Signs Initial Vital Signs: Vital Signs Temperature 98.7 F 12/24/18 15:54 Pulse Rate 112 H 12/24/18 15:54 Respiratory Rate 18 12/24/18 15:54 Blood Pressure 136/88 12/24/18 15:54 Pulse Oximetry 97 12/24/18 15:54 <Maureen Weinstein DO - Last Filed: 12/27/18 07:51> Initial Vital Signs Initial Vital Signs: Vital Signs Temperature 98.7 F 12/24/18 15:54 Pulse Rate 112 H 12/24/18 15:54 Respiratory Rate 18 12/24/18 15:54 Blood Pressure 136/88 12/24/18 15:54 Pulse Oximetry 97 12/24/18 15:54 Course <Mariela Mcelroy PA-C - Last Filed: 12/24/18 22:21> Additional Information: Patient reported improvement following nebulizer treatment. He does have exposure to sick contacts. Suspect his tachycardia may be related to Sudafed use nebulizer treatments well. he does have a history of recurrent pneumonia and will follow up with his PCP in the next 2 days for recheck, agreed to return sooner if any acutely worsening symptoms. Orders Ordered: Discontinued Medications Albuterol (Ventolin) 2.5 mg INH NOW ONE Stop: 12/24/18 17:12 Last Admin: 12/24/18 17:13 Dose: 2.5 mg Albuterol/Ipratropium (Duoneb) 3 ml INH NOW ONE Stop: 12/24/18 17:12 Last Admin: 12/24/18 17:13 Dose: 3 ml Sodium Chloride (Normal Saline 0.9%) 1,000 mls @ 1,000 mls/hr IV BOLUS ONE Stop: 12/24/18 17:47 Last Infusion: 12/24/18 18:26 Dose: 0 mls/hr Admin: 12/24/18 17:01 Dose: 1,000 mls/hr Vital Signs - 8 hr 12/24/18 15:54 12/24/18 16:42 12/24/18 17:13 Temperature 98.7 F Pulse Rate 112 H 117 H 102 H Respiratory Rate 18 24 14 Blood Pressure 136/88 Blood Pressure [Left Arm] 119/67 Pulse Oximetry 97 111 H 98 12/24/18 17:30 12/24/18 18:33 Temperature Pulse Rate 126 H 112 H Respiratory Rate 13 22 Blood Pressure 106/64 Blood Pressure [Left Arm] 109/72 Pulse Oximetry 97 95 <Maureen Weinstein DO - Last Filed: 12/27/18 07:51> Orders Ordered: Discontinued Medications Albuterol (Ventolin) 2.5 mg INH NOW ONE Stop: 12/24/18 17:12 Last Admin: 12/24/18 17:13 Dose: 2.5 mg Albuterol/Ipratropium (Duoneb) 3 ml INH NOW ONE Stop: 12/24/18 17:12 Last Admin: 12/24/18 17:13 Dose: 3 ml Sodium Chloride (Normal Saline 0.9%) 1,000 mls @ 1,000 mls/hr IV BOLUS ONE Stop: 12/24/18 17:47 Last Infusion: 12/24/18 18:26 Dose: 0 mls/hr Admin: 12/24/18 17:01 Dose: 1,000 mls/hr Vital Signs - 8 hr 12/24/18 15:54 12/24/18 16:42 12/24/18 17:13 Temperature 98.7 F Pulse Rate 112 H 117 H 102 H Respiratory Rate 18 24 14 Blood Pressure 136/88 Blood Pressure [Left Arm] 119/67 Pulse Oximetry 97 111 H 98 12/24/18 17:30 12/24/18 18:33 Temperature Pulse Rate 126 H 112 H Respiratory Rate 13 22 Blood Pressure 106/64 Blood Pressure [Left Arm] 109/72 Pulse Oximetry 97 95 MDM - URI/Sore Throat <Mariela Mcelroy PA-C - Last Filed: 12/24/18 22:21> Lab Data Attestation: I reviewed the patient's lab results. Result diagrams: 12/24/18 16:56 12/24/18 16:56 Lab Results 12/24/18 12/24/18 12/24/18 Range/Units 16:56 16:56 16:56 WBC 11.4 H (4.5-11.0) X10^3/uL RBC 5.36 (4.5-5.9) X10^6/uL Hgb 15.8 (13.5-17.5) g/dL Hct 47.0 (41-53) % MCV 87.8 (80-100) fL MCH 29.5 (26-34) PG MCHC 33.5 (30-36) % RDW 13.2 (11.6-14.8) % Plt Count 179 (150-400) X10^3/uL Neut % (Auto) 77.7 H (50-75) % Lymph % (Auto) 12.6 L (25-40) % [place] % (Auto) 7.5 (3-14) % Eos % (Auto) 1.4 L (2-4) % Baso % (Auto) 0.8 (0-2) % Neut # (Auto) 8800 H (5450-0105) /uL Lymph # (Auto) 1400 (4196-2114) /uL [place] # (Auto) 900 (0-900) /uL Eos # (Auto) 200 (0-450) /uL Baso # (Auto) 100 (0-100) /uL PT 10.9 (10.1-12.7) SECONDS INR 0.9 (0.9-1.3) APTT 29 (26.4-36.2) SECONDS D-Dimer (<230) ng/mL Sodium (137-145) mmol/L Potassium (3.4-5.1) mmol/L Chloride (98-107) mmol/L Carbon Dioxide (22-32) mmol/L BUN (9-20) mg/dL Creatinine (0.66-1.25) mg/dL Estimated GFR (>60) mL/min BUN/Creatinine Ratio (6-22) Glucose (70-100) mg/dL Lactate (0.7-2.1) mmol/L Calcium (8.4-10.2) mg/dL Total Bilirubin (0.2-1.3) mg/dL AST (17-59) IU/L ALT (21-72) IU/L Alkaline Phosphatase (38-126) U/L Total Creatine Kinase (55-170) U/L CK-MB (CK-2) (<2.37) ng/mL CK-MB (CK-2) Rel Index (1.5-5.0) % Troponin I (0.01-0.034) ng/mL Total Protein (6.3-8.2) g/dL Albumin (3.5-5.0) g/dL Globulin (1.7-4.1) g/dL Albumin/Globulin Ratio (1.0-2.8) Lipase (23-300) U/L Procalcitonin < 0.05 (<0.5) ng/mL Influenza A & B (PCR) (Negative) 12/24/18 12/24/18 12/24/18 Range/Units 16:56 16:56 16:56 WBC (4.5-11.0) X10^3/uL RBC (4.5-5.9) X10^6/uL Hgb (13.5-17.5) g/dL Hct (41-53) % MCV (80-100) fL MCH (26-34) PG MCHC (30-36) % RDW (11.6-14.8) % Plt Count (150-400) X10^3/uL Neut % (Auto) (50-75) % Lymph % (Auto) (25-40) % [place] % (Auto) (3-14) % Eos % (Auto) (2-4) % Baso % (Auto) (0-2) % Neut # (Auto) (6787-7122) /uL Lymph # (Auto) (9709-1805) /uL [place] # (Auto) (0-900) /uL Eos # (Auto) (0-450) /uL Baso # (Auto) (0-100) /uL PT (10.1-12.7) SECONDS INR (0.9-1.3) APTT (26.4-36.2) SECONDS D-Dimer 205 (<230) ng/mL Sodium 135 L (137-145) mmol/L Potassium 4.0 (3.4-5.1) mmol/L Chloride 94 L (98-107) mmol/L Carbon Dioxide 29 (22-32) mmol/L BUN 11 (9-20) mg/dL Creatinine 1.00 (0.66-1.25) mg/dL Estimated GFR > 60.0 (>60) mL/min BUN/Creatinine Ratio 11.0 (6-22) Glucose 276 H (70-100) mg/dL Lactate 1.7 (0.7-2.1) mmol/L Calcium 10.2 (8.4-10.2) mg/dL Total Bilirubin 0.8 (0.2-1.3) mg/dL AST 30 (17-59) IU/L ALT 66 (21-72) IU/L Alkaline Phosphatase 89 (38-126) U/L Total Creatine Kinase (55-170) U/L CK-MB (CK-2) (<2.37) ng/mL CK-MB (CK-2) Rel Index (1.5-5.0) % Troponin I (0.01-0.034) ng/mL Total Protein 8.0 (6.3-8.2) g/dL Albumin 4.8 (3.5-5.0) g/dL Globulin 3.2 (1.7-4.1) g/dL Albumin/Globulin Ratio 1.5 (1.0-2.8) Lipase 82 (23-300) U/L Procalcitonin (<0.5) ng/mL Influenza A & B (PCR) (Negative) 12/24/18 12/24/18 Range/Units 16:56 16:56 WBC (4.5-11.0) X10^3/uL RBC (4.5-5.9) X10^6/uL Hgb (13.5-17.5) g/dL Hct (41-53) % MCV (80-100) fL MCH (26-34) PG MCHC (30-36) % RDW (11.6-14.8) % Plt Count (150-400) X10^3/uL Neut % (Auto) (50-75) % Lymph % (Auto) (25-40) % [place] % (Auto) (3-14) % Eos % (Auto) (2-4) % Baso % (Auto) (0-2) % Neut # (Auto) (9285-4408) /uL Lymph # (Auto) (0450-0052) /uL [place] # (Auto) (0-900) /uL Eos # (Auto) (0-450) /uL Baso # (Auto) (0-100) /uL PT (10.1-12.7) SECONDS INR (0.9-1.3) APTT (26.4-36.2) SECONDS D-Dimer (<230) ng/mL Sodium (137-145) mmol/L Potassium (3.4-5.1) mmol/L Chloride (98-107) mmol/L Carbon Dioxide (22-32) mmol/L BUN (9-20) mg/dL Creatinine (0.66-1.25) mg/dL Estimated GFR (>60) mL/min BUN/Creatinine Ratio (6-22) Glucose (70-100) mg/dL Lactate (0.7-2.1) mmol/L Calcium (8.4-10.2) mg/dL Total Bilirubin (0.2-1.3) mg/dL AST (17-59) IU/L ALT (21-72) IU/L Alkaline Phosphatase (38-126) U/L Total Creatine Kinase 104 (55-170) U/L CK-MB (CK-2) 1.62 (<2.37) ng/mL CK-MB (CK-2) Rel Index 1.6 (1.5-5.0) % Troponin I < 0.012 (0.01-0.034) ng/mL Total Protein (6.3-8.2) g/dL Albumin (3.5-5.0) g/dL Globulin (1.7-4.1) g/dL Albumin/Globulin Ratio (1.0-2.8) Lipase (23-300) U/L Procalcitonin (<0.5) ng/mL Influenza A & B (PCR) Negative (Negative) ECG Data Attestation: I personally reviewed and interpreted this ECG as follows: (Sinus tachycardia rate 108, normal axis) <Maureen Weinstein DO - Last Filed: 12/27/18 07:51> Lab Data Lab Results 12/24/18 12/24/18 12/24/18 Range/Units 16:56 16:56 16:56 WBC 11.4 H (4.5-11.0) X10^3/uL RBC 5.36 (4.5-5.9) X10^6/uL Hgb 15.8 (13.5-17.5) g/dL Hct 47.0 (41-53) % MCV 87.8 (80-100) fL MCH 29.5 (26-34) PG MCHC 33.5 (30-36) % RDW 13.2 (11.6-14.8) % Plt Count 179 (150-400) X10^3/uL Neut % (Auto) 77.7 H (50-75) % Lymph % (Auto) 12.6 L (25-40) % [place] % (Auto) 7.5 (3-14) % Eos % (Auto) 1.4 L (2-4) % Baso % (Auto) 0.8 (0-2) % Neut # (Auto) 8800 H (8395-3403) /uL Lymph # (Auto) 1400 (4170-8474) /uL [place] # (Auto) 900 (0-900) /uL Eos # (Auto) 200 (0-450) /uL Baso # (Auto) 100 (0-100) /uL PT 10.9 (10.1-12.7) SECONDS INR 0.9 (0.9-1.3) APTT 29 (26.4-36.2) SECONDS D-Dimer (<230) ng/mL Sodium (137-145) mmol/L Potassium (3.4-5.1) mmol/L Chloride (98-107) mmol/L Carbon Dioxide (22-32) mmol/L BUN (9-20) mg/dL Creatinine (0.66-1.25) mg/dL Estimated GFR (>60) mL/min BUN/Creatinine Ratio (6-22) Glucose (70-100) mg/dL Lactate (0.7-2.1) mmol/L Calcium (8.4-10.2) mg/dL Total Bilirubin (0.2-1.3) mg/dL AST (17-59) IU/L ALT (21-72) IU/L Alkaline Phosphatase (38-126) U/L Total Creatine Kinase (55-170) U/L CK-MB (CK-2) (<2.37) ng/mL CK-MB (CK-2) Rel Index (1.5-5.0) % Troponin I (0.01-0.034) ng/mL Total Protein (6.3-8.2) g/dL Albumin (3.5-5.0) g/dL Globulin (1.7-4.1) g/dL Albumin/Globulin Ratio (1.0-2.8) Lipase (23-300) U/L Procalcitonin < 0.05 (<0.5) ng/mL Influenza A & B (PCR) (Negative) 12/24/18 12/24/18 12/24/18 Range/Units 16:56 16:56 16:56 WBC (4.5-11.0) X10^3/uL RBC (4.5-5.9) X10^6/uL Hgb (13.5-17.5) g/dL Hct (41-53) % MCV (80-100) fL MCH (26-34) PG MCHC (30-36) % RDW (11.6-14.8) % Plt Count (150-400) X10^3/uL Neut % (Auto) (50-75) % Lymph % (Auto) (25-40) % [place] % (Auto) (3-14) % Eos % (Auto) (2-4) % Baso % (Auto) (0-2) % Neut # (Auto) (0927-8578) /uL Lymph # (Auto) (7053-4792) /uL [place] # (Auto) (0-900) /uL Eos # (Auto) (0-450) /uL Baso # (Auto) (0-100) /uL PT (10.1-12.7) SECONDS INR (0.9-1.3) APTT (26.4-36.2) SECONDS D-Dimer 205 (<230) ng/mL Sodium 135 L (137-145) mmol/L Potassium 4.0 (3.4-5.1) mmol/L Chloride 94 L (98-107) mmol/L Carbon Dioxide 29 (22-32) mmol/L BUN 11 (9-20) mg/dL Creatinine 1.00 (0.66-1.25) mg/dL Estimated GFR > 60.0 (>60) mL/min BUN/Creatinine Ratio 11.0 (6-22) Glucose 276 H (70-100) mg/dL Lactate 1.7 (0.7-2.1) mmol/L Calcium 10.2 (8.4-10.2) mg/dL Total Bilirubin 0.8 (0.2-1.3) mg/dL AST 30 (17-59) IU/L ALT 66 (21-72) IU/L Alkaline Phosphatase 89 (38-126) U/L Total Creatine Kinase (55-170) U/L CK-MB (CK-2) (<2.37) ng/mL CK-MB (CK-2) Rel Index (1.5-5.0) % Troponin I (0.01-0.034) ng/mL Total Protein 8.0 (6.3-8.2) g/dL Albumin 4.8 (3.5-5.0) g/dL Globulin 3.2 (1.7-4.1) g/dL Albumin/Globulin Ratio 1.5 (1.0-2.8) Lipase 82 (23-300) U/L Procalcitonin (<0.5) ng/mL Influenza A & B (PCR) (Negative) 12/24/18 12/24/18 Range/Units 16:56 16:56 WBC (4.5-11.0) X10^3/uL RBC (4.5-5.9) X10^6/uL Hgb (13.5-17.5) g/dL Hct (41-53) % MCV (80-100) fL MCH (26-34) PG MCHC (30-36) % RDW (11.6-14.8) % Plt Count (150-400) X10^3/uL Neut % (Auto) (50-75) % Lymph % (Auto) (25-40) % [place] % (Auto) (3-14) % Eos % (Auto) (2-4) % Baso % (Auto) (0-2) % Neut # (Auto) (9825-4439) /uL Lymph # (Auto) (1171-1803) /uL [place] # (Auto) (0-900) /uL Eos # (Auto) (0-450) /uL Baso # (Auto) (0-100) /uL PT (10.1-12.7) SECONDS INR (0.9-1.3) APTT (26.4-36.2) SECONDS D-Dimer (<230) ng/mL Sodium (137-145) mmol/L Potassium (3.4-5.1) mmol/L Chloride (98-107) mmol/L Carbon Dioxide (22-32) mmol/L BUN (9-20) mg/dL Creatinine (0.66-1.25) mg/dL Estimated GFR (>60) mL/min BUN/Creatinine Ratio (6-22) Glucose (70-100) mg/dL Lactate (0.7-2.1) mmol/L Calcium (8.4-10.2) mg/dL Total Bilirubin (0.2-1.3) mg/dL AST (17-59) IU/L ALT (21-72) IU/L Alkaline Phosphatase (38-126) U/L Total Creatine Kinase 104 (55-170) U/L CK-MB (CK-2) 1.62 (<2.37) ng/mL CK-MB (CK-2) Rel Index 1.6 (1.5-5.0) % Troponin I < 0.012 (0.01-0.034) ng/mL Total Protein (6.3-8.2) g/dL Albumin (3.5-5.0) g/dL Globulin (1.7-4.1) g/dL Albumin/Globulin Ratio (1.0-2.8) Lipase (23-300) U/L Procalcitonin (<0.5) ng/mL Influenza A & B (PCR) Negative (Negative) Discharge Plan Departure Patient Disposition: Home Clinical Impression: Bronchitis RAD (reactive airway disease) Qualifiers: Asthma severity: mild Asthma persistence: intermittent Asthma complication type: with acute exacerbation Qualified Code(s): J45.21 - Mild intermittent asthma with (acute) exacerbation Discharge Date/Time: 12/24/18 18:35 Interventions: ED Discharge Assessment Last Done: 12/24/18 18:33 Instructions: DI for Acute Bronchitis, DI for Reactive Airway Disease-Adult Activity Restrictions/Additional Instructions: Your testing did not show any acute problem to explain your chest discomfort today such as pneumonia or heart problems, and suspect since this is associated with cough and phlegm that you have bronchitis since others in her household h ave been sick as well. most of the time, this is due to a virus, and in your case, it exacerbates your reactive airways/asthma symptoms. Please return to the ED as we discussed if you have any acutely worsening symptoms. Otherwise, please follow-up with your PCP in the next couple of days to assess your progress and determine whether a repeat x-ray or further testing is needed. Use your nebulizer as often as needed to help with tight chest. You can use the prescription cough syrup at nighttime but remember this can make you sleepy and not to use during the day. Please add some hviv-olj-[id number] guaifenesin (i.e. Mucinex) to help with your chest congestion. Your pulse was somewhat elevated today, however this could be due to you using Sudafed and then also having the nebulizer treatments. Prescriptions: New albuterol sulfate 2.5 mg /3 mL (0.083 %) solution for nebulization 2.5 mg INHALATION Q2H PRN (Reason: shortness of breath or wheezing) Qty: 90 RF: 0 promethazine-codeine 6.25-10 mg/5 mL syrup 5 ml PO Q4-6H PRN (Reason: cough at hs) Qty: 118 RF: 0 No Action atorvastatin [Lipitor] 20 MG tablet 20 mg PO BEDTIME Qty: 0 RF: 0 cyclobenzaprine 10 MG tablet 10 mg PO Qty: 0 RF: 0 lisinopril-hydrochlorothiazide 20 MG/12.5 MG tablet 1 tab PO DAILY Qty: 0 RF: 0 acetaminophen 325 MG tablet 650 mg PO Q4HP PRNQty: 0 RF: 0 ibuprofen 800 MG tablet 800 mg PO TIDP PRNQty: 0 RF: 0 aspirin 325 MG tablet,delayed release (DR/EC) 325 mg PO QDAY Qty: 0 RF: 0 testosterone cypionate [Depo-Testosterone] 200 mg/mL oil RF: 0 metformin 750 mg tablet extended release 24 hr 750 mg PO BID RF: 0 methadone 10 mg tablet 10 mg PO BID PRN (Reason: Pain, Severe) RF: 0 Referrals: Cassi Johnson DO [Primary Care Provider] - <Maureen Weinstein DO - Last Filed: 12/27/18 07:51> Cosign ED Attending Óscar Attestation: I was immediately available in the department for consultation. Documentation has been reviewed. I agree with assessment and plan.
[2018-12-24 17:09] LABS: Add Manual Diff / Slide Review NO; Basophils Absolute Auto 100 /uL (0-100); Basophils Percent Auto 0.8 % (0-2); Eosinophils Absolute Auto 200 /uL (0-450); Eosinophils Percent Auto 1.4 % (2-4); Hemoglobin 15.8 g/dL (13.5-17.5); Lymphocytes Absolute Auto 1400 /uL (1100-4500); Lymphocytes Percent Auto 12.6 % (25-40); Mean Corpuscular HGB Conc 33.5 % (30-36); Mean Corpuscular Hemoglobin 29.5 PG (26-34); Mean Corpuscular Volume 87.8 fL (80-100); Monocytes Absolute Auto 900 /uL (0-900); Monocytes Percent Auto 7.5 % (3-14); Neutrophils Absolute Auto 8800 /uL (1500-7000); Neutrophils Percent Auto 77.7 % (50-75); Platelet Count 179 X10^3/uL (150-400); Red Blood Cell Count 5.36 X10^6/uL (4.5-5.9); Red Cell Distribution Width 13.2 % (11.6-14.8); White Blood Cell Count 11.4 X10^3/uL (4.5-11.0)
[2018-12-24 17:13] VITALS: PULSE 102; RESP 14; O2SAT 98
[2018-12-24] MEDS: ALBUTEROL/IPRATROPIUM 3 ML AMPUL INH (17:13)
[2018-12-24] MEDS: ALBUTEROL 2.5 MG/3 ML NEB (ADULT) INH (17:13)
[2018-12-24 17:14] LABS: INR 0.9 (0.9-1.3); Prothrombin Time 10.9 SECONDS (10.1-12.7)
[2018-12-24 17:17] LABS: PTT Partial Thromboplastin Tim 29 SECONDS (26.4-36.2)
[2018-12-24 17:20] LABS: Creatine Kinase 104 U/L (55-170); Lactate (Lactic Acid) 1.7 mmol/L (0.7-2.1)
[2018-12-24 17:21] LABS: Alanine Aminotransferase 66 IU/L (21-72); Albumin 4.8 g/dL (3.5-5.0); Albumin Globulin Ratio 1.5 (1.0-2.8); Alkaline Phosphatase 89 U/L (38-126); Aspartate Aminotransferase 30 IU/L (17-59); Bilirubin Total 0.8 mg/dL (0.2-1.3); Blood Urea Nitrogen 11 mg/dL (9-20); Calcium 10.2 mg/dL (8.4-10.2); Carbon Dioxide 29 mmol/L (22-32); Chloride 94 mmol/L (98-107); Estimated Glomerular Filt Rate > 60.0 mL/min (>60); Globulin 3.2 g/dL (1.7-4.1); Glucose 276 mg/dL (70-100); HEMOLYSIS < 15 (0-50); Lipase 82 U/L (23-300); Sodium 135 mmol/L (137-145)
[2018-12-24 17:30] VITALS: BP 109/72; PULSE 126; RESP 13; O2SAT 97
[2018-12-24 17:32] LABS: Troponin I < 0.012 ng/mL (0.01-0.034)
[2018-12-24 17:34] LABS: D Dimer 205 ng/mL (<230)
[2018-12-24 17:37] LABS: Influenza A and B by PCR Rapid Negative (Negative)
[2018-12-24 17:44] LABS: Procalcitonin < 0.05 ng/mL (<0.5)
[2018-12-24 18:22] LABS: CKMB % Relative Index 1.6 % (1.5-5.0); Creatine Kinase MB 1.62 ng/mL (<2.37)
[2018-12-24 18:33] VITALS: BP 106/64; PULSE 112; RESP 22; O2SAT 95
== END 2018-12-24 18:35 | disposition home or self-care (01) ==
PROVIDERS: Emergency Provider Internal Medicine; Family Provider Family Medicine; PCP Family Medicine
DX: J40 Bronchitis, not specified as acute or chronic (principal); J45.21 Mild intermittent asthma with (acute) exacerbation; R00.0 Tachycardia, unspecified
CPT/HCPCS: 36415; 36591; 71046; 80053; 82550; 82553; 83605; 83690; 84145; 84484; 85025; 85379; 85610; 85730; 87040; 87400; 93005; 94640; 96360; 99283; 99285; J7613

== ENCOUNTER 2020-02-17 11:58 | Emergency (ER) | payer OTHER, SELFPAY ==
[2020-02-17] VITALS (8 sets, daily range): BP systolic 142–191; BP diastolic 73–111; PULSE 55–109; RESP 12–26; TEMP 36.8; O2SAT 95–98; BMI 42.3
--- NOTE | 2020-02-17 12:19 | DI.RAD.S_ITS ---
PROCEDURE: XR CHEST 1V INDICATIONS: palpitations / diaphorisis TECHNIQUE: One view of the chest was acquired. COMPARISON: [facility], CR, XR CHEST 2V, 12/24/2018, 16:08. FINDINGS: Surgical changes and devices: None. Lungs and pleura: The pulmonary vascular markings are increased within the perihilar regions. No definite area of pulmonary consolidation is evident. There is no pneumothorax or pleural effusion. Mediastinum: Mediastinal contours appear normal. Heart size is normal. Bones and chest wall: No suspicious bony lesions. Overlying soft tissues appear unremarkable. IMPRESSION: Mild pulmonary vascular congestion. No definite pneumonia. Dictated by: Rhys Martin M.D. on 02/17/2020 at 11:55 Approved by: Rhys Martin M.D. on 02/17/2020 at 11:58
[2020-02-17 12:29] LABS: Add Manual Diff / Slide Review NO; Basophils Absolute Auto 0 /uL (0-100); Basophils Percent Auto 0.6 % (0-2); Eosinophils Absolute Auto 200 /uL (0-450); Eosinophils Percent Auto 3.1 % (2-4); Hematocrit 47.6 % (41-53); Hemoglobin 16.5 g/dL (13.5-17.5); Lymphocytes Absolute Auto 1600 /uL (1100-4500); Lymphocytes Percent Auto 21.7 % (25-40); Mean Corpuscular HGB Conc 34.6 % (30-36); Mean Corpuscular Hemoglobin 29.4 PG (26-34); Monocytes Absolute Auto 600 /uL (0-900); Monocytes Percent Auto 7.8 % (3-14); Neutrophils Absolute Auto 5000 /uL (1500-7000); Neutrophils Percent Auto 66.8 % (50-75); Platelet Count 207 X10^3/uL (150-400); Red Cell Distribution Width 13.6 % (11.6-14.8); White Blood Cell Count 7.5 X10^3/uL (4.5-11.0)
[2020-02-17 12:39] LABS: Alanine Aminotransferase 63 IU/L (<50); Albumin 4.7 g/dL (3.5-5.0); Albumin Globulin Ratio 1.5 (1.0-2.8); Alkaline Phosphatase 96 U/L (38-126); Aspartate Aminotransferase 47 IU/L (17-59); BUN Creatinine Ratio 14.5 (6-22); Bilirubin Total 0.6 mg/dL (0.2-1.3); Blood Urea Nitrogen 12 mg/dL (9-20); Calcium 10.5 mg/dL (8.4-10.2); Carbon Dioxide 28 mmol/L (22-32); Chloride 101 mmol/L (98-107); Creatine Kinase 149 U/L (55-170); Estimated Glomerular Filt Rate > 60.0 mL/min (>60); Globulin 3.1 g/dL (1.7-4.1); Glucose 233 mg/dL (70-100); HEMOLYSIS < 15 (0-50); Magnesium 1.7 mg/dL (1.6-2.3); Sodium 137 mmol/L (137-145); Total Protein 7.8 g/dL (6.3-8.2)
[2020-02-17 12:47] LABS: NT-proBNP (BNP-Adult 18+) 26 pg/mL (<125); Prothrombin Time 11.4 SECONDS (10.1-12.7)
[2020-02-17 12:49] LABS: PTT Partial Thromboplastin Tim 30 SECONDS (26.4-36.2); Troponin I < 0.012 ng/mL (0.01-0.034)
[2020-02-17 13:09] LABS: CKMB % Relative Index 1.6 % (1.5-5.0); Creatine Kinase MB 2.42 ng/mL (<2.37)
[2020-02-17 13:19] LABS: Thyroid Stimulating Hormone 4.22 uIU/mL (0.47-4.68)
--- NOTE | 2020-02-17 13:30 | ED.ARRPALP ---
HPI - Arrhythmia/Palpitations <ALEJANDRO Zaragoza - Last Filed: 02/18/20 00:43> General Chief Complaint: Arrhythmia/Palpitations Stated Complaint: High Heart Rate, Sweating Time Seen by Provider: 02/17/20 12:42 Source: patient Mode of arrival: Ambulatory Limitations: no limitations History of Present Illness HPI narrative: This is a 54-year-old male, former smoker, who has history of hypertension, chronic back pain, diabetes, presents to ED with exertional tachycardia rate up to 140s per wrist heart monitor watch with associated symptoms such as cold sweats, feeling tense, and nausea. 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 He has been nauseated for last 1.5 days. His wrist heart monitor watch alert him whether to call EMS and when he glanced at it his heart rate was at 1:47 a.m.. He fell his heart racing at this time. He came home and rested but still heart rate was reading in 120s at this time. He reports he is under significant marital stress and states he is from his for 1 year. His brother who was 55 just recently . He visited [place] by driving to attend the memory are service and got back home about a week ago. Patient denies chest pain, lightheadedness, or dyspnea. Currently, patient feels pounding sensation even though heart is not racing fast as earlier (continuous manager monitoring runs at 80-90's). Patient reports he has strong cardiac history in his family and states everyone has high blood pressure. His mother has multiple strokes. His grandfather with heart attacks. His primary care physician is located at [facility]. Related Data Home Medications Medication Instructions Recorded Confirmed acetaminophen 650 mg PO Q4HP PRN #0 10/31/17 aspirin 325 mg PO QDAY #0 10/31/17 atorvastatin [Lipitor] 20 mg PO BEDTIME #0 10/31/17 12/24/18 cyclobenzaprine 10 mg PO #0 10/31/17 ibuprofen 800 mg PO TIDP PRN #0 10/31/17 lisinopril-hydrochlorothiazide 1 tab PO DAILY #0 10/31/17 12/24/18 methadone 10 mg PO BID PRN 10/09/18 12/24/18 metformin 750 mg PO BID 12/24/18 12/24/18 testosterone cypionate 12/24/18 [Depo-Testosterone] Previous Rx's Medication Instructions Recorded albuterol sulfate 2.5 mg INHALATION Q2H PRN #90 ml 12/24/18 promethazine-codeine 5 ml PO Q4-6H PRN #118 ml 12/24/18 Allergies Allergy/AdvReac Type Severity Reaction Status Date / Time No Known Drug Allergies Allergy Verified 02/17/20 12:15 Review of Systems <ALEJANDRO Zaragoza - Last Filed: 02/18/20 00:43> Review of Systems Narrative: General: Denies fever, chills, fatigue, malaise, sweats. HEENT: Denies sinus pain, ear pain, sore throat, difficulty swallowing, dizziness. Respiratory: Denies dyspnea, cough, wheezing, hemoptysis, sputum. Cardiovascular: See HPI Gastrointestinal: Denies nausea, vomiting, abdominal pain, diarrhea, constipation, melena. : Denies dysuria, frequency, incontinence, hematuria, urinary retention. Musculoskeletal: Left calf cramping pain. Denies weakness, joint pain or bony pain. Skin: Denies rash, skin lesions, or other. Neurologic: Denies weakness, headache, numbness, change in speech, confusion, seizures, incoordination. Psychiatric: No concerning psychosocial issues. 12-point review of systems is negative except for those stated above. Patient History <ALEJANDRO Zaragoza - Last Filed: 02/18/20 00:43> Medical History Bilateral carpal tunnel syndrome (Acute) History of pituitary tumor (Resolved) HTN (hypertension) (Chronic) Hyperlipidemia (Chronic) Non-insulin dependent type 2 diabetes mellitus (Chronic) Reactive airways dysfunction syndrome (Chronic) Surgical History History of fasciotomy (Resolved) History of shoulder surgery (Resolved) Social History Smoking Status: Current every day smoker Smoking Status: Current every day smoker tobacco type: e-cigarettes alcohol intake frequency: holidays/special occasions only Substance Use Type: does not use Exam <Jerry ALEJANDRO Bansal - Last Filed: 02/18/20 00:43> Narrative Exam Narrative: GEN: Alert, oriented x 3, well appearing and nourished, and in no acute distress but appears to be anxious. Head: Normal cephalic, atraumatic. No scalp or temporal tenderness, palpable mass or rash. EYES: Pupils are equal, round, and reactive to light and accommodation. Extraocular muscles are intact bilaterally. There is no subconjunctival hemorrhage, exudate and sclera non-icteric. ENT: Hearing grossly intact. Nose without bleeding, purulent discharge or deviation. Mucous membrane moist, no mucosal lesion. Throat without erythema, tonsillar hypertrophy or exudate. Uvula in midline, airway patent. Neck: Trachea in midline. No JVD, non-tender without lymphadenopathy. No masses or thyroid megaly. Supple, non-tender and no meningeal signs. CARDIAC: Normal regular rate and rhythm without murmurs, gallops, or rubs. No chest wall tenderness. No peripheral edema, cyanosis or pallor. Capillary refill is less than 2 seconds. RESPIRATORY: Lungs are clear to auscultate bilaterally. No cough, wheezes, rales, or rhonchi. No stridor, respiratory distress, increase work of breathing, or accessary muscle used. ABD: Abdomen soft, obese, nontender and non-distended. No guarding or rebound tenderness to palpate. Bowel sounds are normal in all 4 quadrants. There is no palpable masses or organomegaly. EXT: Full painless ROM of all extremities with no loss of sensation, strength, effusion or edema. SKIN: Warm, dry, normal color for patient. No erythema, lesions or rash over visible areas. BACK: Nontender without deformity or crepitance. No flank tenderness. NEUROLOGICAL: Alert and oriented to place, time and person. Sensation and motor function intact bilaterally. No facial droops, dysphasia. PSYCHIATRIC: Good judgement and reason, without hallucinations, abnormal affect or abnormal behaviors during the examination. Patient is not suicidal. Initial Vital Signs Initial Vital Signs: Vital Signs Temperature 98.3 F 02/17/20 12:15 Pulse Rate 109 H 02/17/20 12:15 Respiratory Rate 26 H 02/17/20 12:15 Blood Pressure 191/111 H 02/17/20 12:15 Pulse Oximetry 98 02/17/20 12:15 <Adalberto Jimenez MD - Last Filed: 02/29/20 07:24> Initial Vital Signs Initial Vital Signs: Vital Signs Temperature 98.3 F 02/17/20 12:15 Pulse Rate 109 H 02/17/20 12:15 Respiratory Rate 26 H 02/17/20 12:15 Blood Pressure 191/111 H 02/17/20 12:15 Pulse Oximetry 98 02/17/20 12:15 Scores <[facility] - Last Filed: 02/18/20 00:43> HEART Score Heart Score history: Moderately Suspicious Heart Score EKG: Normal Heart Score Age: 45-64 years old Heart Score risk factors: 1-2 risk factors Heart Score troponin: 1-3 times normal limit Heart Score Total: 4 Course <[facility] - Last Filed: 02/18/20 00:43> Orders Ordered: Discontinued Medications Aspirin (Aspirin Chew) 243 mg PO NOW ONE Stop: 02/17/20 15:01 Last Admin: 02/17/20 15:07 Dose: 243 mg Documented by: BRAYAN Consultations Consultation #1: Dr Byrd consulted for the treatment plan observation admission for cardiac work up with stress test vs. outpatient cardiac stress test if the 2nd cardiac enzymes are negative Time: 14:10 Vital Signs Vital signs: Vital Signs - 8 hr 02/17/20 17:14 Pulse Rate 73 Respiratory Rate 16 Blood Pressure [Left Arm] 144/90 H Pulse Oximetry 98 <Adalberto Jimenez MD - Last Filed: 02/29/20 07:24> Orders Ordered: Discontinued Medications Aspirin (Aspirin Chew) 243 mg PO NOW ONE Stop: 02/17/20 15:01 Last Admin: 02/17/20 15:07 Dose: 243 mg Documented by: BRAYAN Vital Signs Vital signs: Vital Signs - 8 hr 02/17/20 17:14 Pulse Rate 73 Respiratory Rate 16 Blood Pressure [Left Arm] 144/90 H Pulse Oximetry 98 MDM - Arrhythmia/Palpitations <[facility] - Last Filed: 02/18/20 00:43> Differential Diagnosis Differential diagnosis: Likely palpitations, supraventricular tachycardia and other (AK, NSTEMI, atypical chest pain, arrhythmia) Medical Records Attestation: I reviewed the patient's medical records. Lab Data Attestation: I reviewed the patient's lab results. Result diagrams: 02/17/20 12:10 02/17/20 12:10 Labs: Lab Results 02/17/20 02/17/20 02/17/20 Range/Units 12:10 12:10 12:10 WBC 7.5 (4.5-11.0) X10^3/uL RBC 5.60 (4.5-5.9) X10^6/uL Hgb 16.5 (13.5-17.5) g/dL Hct 47.6 (41-53) % MCV 85.0 (80-100) fL MCH 29.4 (26-34) PG MCHC 34.6 (30-36) % RDW 13.6 (11.6-14.8) % Plt Count 207 (150-400) X10^3/uL Neut % (Auto) 66.8 (50-75) % Lymph % (Auto) 21.7 L (25-40) % [place] % (Auto) 7.8 (3-14) % Eos % (Auto) 3.1 (2-4) % Baso % (Auto) 0.6 (0-2) % Neut # (Auto) 5000 (7901-6820) /uL Lymph # (Auto) 1600 (2566-7699) /uL [place] # (Auto) 600 (0-900) /uL Eos # (Auto) 200 (0-450) /uL Baso # (Auto) 0 (0-100) /uL PT 11.4 (10.1-12.7) SECONDS INR 1.0 (0.9-1.3) APTT 30 (26.4-36.2) SECONDS D-Dimer (<230) ng/mL Sodium 137 (137-145) mmol/L Potassium 4.0 (3.4-5.1) mmol/L Chloride 101 (98-107) mmol/L Carbon Dioxide 28 (22-32) mmol/L BUN 12 (9-20) mg/dL Creatinine 0.83 (0.66-1.25) mg/dL Estimated GFR > 60.0 (>60) mL/min BUN/Creatinine Ratio 14.5 (6-22) Glucose 233 H (70-100) mg/dL Calcium 10.5 H (8.4-10.2) mg/dL Magnesium 1.7 (1.6-2.3) mg/dL Total Bilirubin 0.6 (0.2-1.3) mg/dL AST 47 (17-59) IU/L ALT 63 H (<50) IU/L Alkaline Phosphatase 96 (38-126) U/L Total Creatine Kinase 149 (55-170) U/L CK-MB (CK-2) 2.42 H (<2.37) ng/mL CK-MB (CK-2) Rel Index 1.6 (1.5-5.0) % Troponin I < 0.012 (0.01-0.034) ng/mL NT-Pro-B Natriuret Pep (<125) pg/mL Total Protein 7.8 (6.3-8.2) g/dL Albumin 4.7 (3.5-5.0) g/dL Globulin 3.1 (1.7-4.1) g/dL Albumin/Globulin Ratio 1.5 (1.0-2.8) TSH (0.47-4.68) uIU/mL 02/17/20 02/17/20 02/17/20 Range/Units 12:10 12:10 12:10 WBC (4.5-11.0) X10^3/uL RBC (4.5-5.9) X10^6/uL Hgb (13.5-17.5) g/dL Hct (41-53) % MCV (80-100) fL MCH (26-34) PG MCHC (30-36) % RDW (11.6-14.8) % Plt Count (150-400) X10^3/uL Neut % (Auto) (50-75) % Lymph % (Auto) (25-40) % [place] % (Auto) (3-14) % Eos % (Auto) (2-4) % Baso % (Auto) (0-2) % Neut # (Auto) (2834-2326) /uL Lymph # (Auto) (2953-4948) /uL [place] # (Auto) (0-900) /uL Eos # (Auto) (0-450) /uL Baso # (Auto) (0-100) /uL PT (10.1-12.7) SECONDS INR (0.9-1.3) APTT (26.4-36.2) SECONDS D-Dimer < 200 (<230) ng/mL Sodium (137-145) mmol/L Potassium (3.4-5.1) mmol/L Chloride (98-107) mmol/L Carbon Dioxide (22-32) mmol/L BUN (9-20) mg/dL Creatinine (0.66-1.25) mg/dL Estimated GFR (>60) mL/min BUN/Creatinine Ratio (6-22) Glucose (70-100) mg/dL Calcium (8.4-10.2) mg/dL Magnesium (1.6-2.3) mg/dL Total Bilirubin (0.2-1.3) mg/dL AST (17-59) IU/L ALT (<50) IU/L Alkaline Phosphatase (38-126) U/L Total Creatine Kinase (55-170) U/L CK-MB (CK-2) (<2.37) ng/mL CK-MB (CK-2) Rel Index (1.5-5.0) % Troponin I (0.01-0.034) ng/mL NT-Pro-B Natriuret Pep 26 (<125) pg/mL Total Protein (6.3-8.2) g/dL Albumin (3.5-5.0) g/dL Globulin (1.7-4.1) g/dL Albumin/Globulin Ratio (1.0-2.8) TSH 4.22 (0.47-4.68) uIU/mL 02/16/ Range/Units 15:30 WBC (4.5-11.0) X10^3/uL RBC (4.5-5.9) X10^6/uL Hgb (13.5-17.5) g/dL Hct (41-53) % MCV (80-100) fL MCH (26-34) PG MCHC (30-36) % RDW (11.6-14.8) % Plt Count (150-400) X10^3/uL Neut % (Auto) (50-75) % Lymph % (Auto) (25-40) % [place] % (Auto) (3-14) % Eos % (Auto) (2-4) % Baso % (Auto) (0-2) % Neut # (Auto) (7022-1569) /uL Lymph # (Auto) (7209-7040) /uL [place] # (Auto) (0-900) /uL Eos # (Auto) (0-450) /uL Baso # (Auto) (0-100) /uL PT (10.1-12.7) SECONDS INR (0.9-1.3) APTT (26.4-36.2) SECONDS D-Dimer (<230) ng/mL Sodium (137-145) mmol/L Potassium (3.4-5.1) mmol/L Chloride (98-107) mmol/L Carbon Dioxide (22-32) mmol/L BUN (9-20) mg/dL Creatinine (0.66-1.25) mg/dL Estimated GFR (>60) mL/min BUN/Creatinine Ratio (6-22) Glucose (70-100) mg/dL Calcium (8.4-10.2) mg/dL Magnesium (1.6-2.3) mg/dL Total Bilirubin (0.2-1.3) mg/dL AST (17-59) IU/L ALT (<50) IU/L Alkaline Phosphatase (38-126) U/L Total Creatine Kinase 120 (55-170) U/L CK-MB (CK-2) 2.14 (<2.37) ng/mL CK-MB (CK-2) Rel Index 1.8 (1.5-5.0) % Troponin I < 0.012 (0.01-0.034) ng/mL NT-Pro-B Natriuret Pep (<125) pg/mL Total Protein (6.3-8.2) g/dL Albumin (3.5-5.0) g/dL Globulin (1.7-4.1) g/dL Albumin/Globulin Ratio (1.0-2.8) TSH (0.47-4.68) uIU/mL Imaging Data Chest x-ray: Radiologist's Impresson: [address] [address] XRay Report Signed Patient: Emiliano Almanzar [facility]#: [id number] : 1965Acct:[id number] Age/Sex: 54 / MDate of Service: 02/17/20 Loc: ED Accession Number: [id number] Procedure: XR chest 1V Ordering Provider: Adalberto Jimenez MD PROCEDURE: XR CHEST 1V INDICATIONS: palpitations / diaphorisis TECHNIQUE: One view of the chest was acquired. COMPARISON: [facility], CR, XR CHEST 2V, 12/24/2018, 16:08. FINDINGS: Surgical changes and devices: None. Lungs and pleura: The pulmonary vascular markings are increased within the perihilar regions. No definite area of pulmonary consolidation is evident. There is no pneumothorax or pleural effusion. Mediastinum: Mediastinal contours appear normal. Heart size is normal. Bones and chest wall: No suspicious bony lesions. Overlying soft tissues appear unremarkable. IMPRESSION: Mild pulmonary vascular congestion. No definite pneumonia. Dictated by: Rhys Martin M.D. on 02/17/2020 at 11:55 Approved by: Rhys Martin M.D. on 02/17/2020 at 11:58 ECG Data Attestation: I personally reviewed and interpreted this ECG as follows: Prior ECG tracings: available for review Interpretation: #EKG 1: Sinus rhythm rate at 97. NOrmal [place]. NE interval 87, QRS duration 87, QT/QTC 320/375. No at acute ST changes #EKG 2. Sinus rhythm with PVCs rate at 77 Normal [place]. NE interval 202, QRS duration 92, QT/QTc 386/[address] changes. Previous EKG-Sinus tachycardia MDM Narrative Medical decision making narrative: The patient's HPI raised the concerns which he had exertional diaphoresis with palpitations and tachycardia per wrist monitor. Patient did not endorse other cardiac associated symptoms such as chest pain, breathing difficulty, dizziness. Patient has risk factors such as diabetes, obese, hypertension, hyperlipidemia with family history of MIs in brother and grandfather. First EKG was normal sinus rhythm without acute ST changes. Stable H&H without leukocytosis. Unremarkable electrolytes except elevated blood glucose of 233 and mildly elevated ALT of 63. First cardiac enzyme with mildly elevated CK-MB of 2.4 to with negative troponin. CK-MB rel index was normal. Normal coag. Since patient had travel to [place] by driving, D-dimer which came back as normal as <200. TSH also was within normal limit of 4.22. Consulted Dr. Byrd, hospitalist, and he kindly accepted patient's care as observation for cardiac workup for stress test tomorrow if patient wishes to stay otherwise he recommended outpatient stress test would be acceptable as well if patient elects to do so. In shared decision making, patient elects to follow with his primary care physician with outpatient stress test if 2nd cardiac enzyme comes back negative. Second EKG was normal sinus rhythm without acute ST-T change with negative troponin and normal CK and CK-MB. Patient was provided with additional aspirin ED. he was advised to continue his medication including aspirin and to follow up with his primary care physician to schedule outpatient stress test which she verbalized understanding in agreement with treatment plan. Also, strict return precautions were discussed with patient. <Adalberto Jimenez MD - Last Filed: 02/29/20 07:24> Lab Data Labs: Lab Results 02/17/20 02/17/20 02/17/20 Range/Units 12:10 12:10 12:10 WBC 7.5 (4.5-11.0) X10^3/uL RBC 5.60 (4.5-5.9) X10^6/uL Hgb 16.5 (13.5-17.5) g/dL Hct 47.6 (41-53) % MCV 85.0 (80-100) fL MCH 29.4 (26-34) PG MCHC 34.6 (30-36) % RDW 13.6 (11.6-14.8) % Plt Count 207 (150-400) X10^3/uL Neut % (Auto) 66.8 (50-75) % Lymph % (Auto) 21.7 L (25-40) % [place] % (Auto) 7.8 (3-14) % Eos % (Auto) 3.1 (2-4) % Baso % (Auto) 0.6 (0-2) % Neut # (Auto) 5000 (8223-0261) /uL Lymph # (Auto) 1600 (5643-2761) /uL [place] # (Auto) 600 (0-900) /uL Eos # (Auto) 200 (0-450) /uL Baso # (Auto) 0 (0-100) /uL PT 11.4 (10.1-12.7) SECONDS INR 1.0 (0.9-1.3) APTT 30 (26.4-36.2) SECONDS D-Dimer (<230) ng/mL Sodium 137 (137-145) mmol/L Potassium 4.0 (3.4-5.1) mmol/L Chloride 101 (98-107) mmol/L Carbon Dioxide 28 (22-32) mmol/L BUN 12 (9-20) mg/dL Creatinine 0.83 (0.66-1.25) mg/dL Estimated GFR > 60.0 (>60) mL/min BUN/Creatinine Ratio 14.5 (6-22) Glucose 233 H (70-100) mg/dL Calcium 10.5 H (8.4-10.2) mg/dL Magnesium 1.7 (1.6-2.3) mg/dL Total Bilirubin 0.6 (0.2-1.3) mg/dL AST 47 (17-59) IU/L ALT 63 H (<50) IU/L Alkaline Phosphatase 96 (38-126) U/L Total Creatine Kinase 149 (55-170) U/L CK-MB (CK-2) 2.42 H (<2.37) ng/mL CK-MB (CK-2) Rel Index 1.6 (1.5-5.0) % Troponin I < 0.012 (0.01-0.034) ng/mL NT-Pro-B Natriuret Pep (<125) pg/mL Total Protein 7.8 (6.3-8.2) g/dL Albumin 4.7 (3.5-5.0) g/dL Globulin 3.1 (1.7-4.1) g/dL Albumin/Globulin Ratio 1.5 (1.0-2.8) TSH (0.47-4.68) uIU/mL 02/17/20 02/17/20 02/17/20 Range/Units 12:10 12:10 12:10 WBC (4.5-11.0) X10^3/uL RBC (4.5-5.9) X10^6/uL Hgb (13.5-17.5) g/dL Hct (41-53) % MCV (80-100) fL MCH (26-34) PG MCHC (30-36) % RDW (11.6-14.8) % Plt Count (150-400) X10^3/uL Neut % (Auto) (50-75) % Lymph % (Auto) (25-40) % [place] % (Auto) (3-14) % Eos % (Auto) (2-4) % Baso % (Auto) (0-2) % Neut # (Auto) (9699-8459) /uL Lymph # (Auto) (7244-2867) /uL [place] # (Auto) (0-900) /uL Eos # (Auto) (0-450) /uL Baso # (Auto) (0-100) /uL PT (10.1-12.7) SECONDS INR (0.9-1.3) APTT (26.4-36.2) SECONDS D-Dimer < 200 (<230) ng/mL Sodium (137-145) mmol/L Potassium (3.4-5.1) mmol/L Chloride (98-107) mmol/L Carbon Dioxide (22-32) mmol/L BUN (9-20) mg/dL Creatinine (0.66-1.25) mg/dL Estimated GFR (>60) mL/min BUN/Creatinine Ratio (6-22) Glucose (70-100) mg/dL Calcium (8.4-10.2) mg/dL Magnesium (1.6-2.3) mg/dL Total Bilirubin (0.2-1.3) mg/dL AST (17-59) IU/L ALT (<50) IU/L Alkaline Phosphatase (38-126) U/L Total Creatine Kinase (55-170) U/L CK-MB (CK-2) (<2.37) ng/mL CK-MB (CK-2) Rel Index (1.5-5.0) % Troponin I (0.01-0.034) ng/mL NT-Pro-B Natriuret Pep 26 (<125) pg/mL Total Protein (6.3-8.2) g/dL Albumin (3.5-5.0) g/dL Globulin (1.7-4.1) g/dL Albumin/Globulin Ratio (1.0-2.8) TSH 4.22 (0.47-4.68) uIU/mL 02/17/20 Range/Units 15:30 WBC (4.5-11.0) X10^3/uL RBC (4.5-5.9) X10^6/uL Hgb (13.5-17.5) g/dL Hct (41-53) % MCV (80-100) fL MCH (26-34) PG MCHC (30-36) % RDW (11.6-14.8) % Plt Count (150-400) X10^3/uL Neut % (Auto) (50-75) % Lymph % (Auto) (25-40) % [place] % (Auto) (3-14) % Eos % (Auto) (2-4) % Baso % (Auto) (0-2) % Neut # (Auto) (1938-6167) /uL Lymph # (Auto) (7351-6676) /uL [place] # (Auto) (0-900) /uL Eos # (Auto) (0-450) /uL Baso # (Auto) (0-100) /uL PT (10.1-12.7) SECONDS INR (0.9-1.3) APTT (26.4-36.2) SECONDS D-Dimer (<230) ng/mL Sodium (137-145) mmol/L Potassium (3.4-5.1) mmol/L Chloride (98-107) mmol/L Carbon Dioxide (22-32) mmol/L BUN (9-20) mg/dL Creatinine (0.66-1.25) mg/dL Estimated GFR (>60) mL/min BUN/Creatinine Ratio (6-22) Glucose (70-100) mg/dL Calcium (8.4-10.2) mg/dL Magnesium (1.6-2.3) mg/dL Total Bilirubin (0.2-1.3) mg/dL AST (17-59) IU/L ALT (<50) IU/L Alkaline Phosphatase (38-126) U/L Total Creatine Kinase 120 (55-170) U/L CK-MB (CK-2) 2.14 (<2.37) ng/mL CK-MB (CK-2) Rel Index 1.8 (1.5-5.0) % Troponin I < 0.012 (0.01-0.034) ng/mL NT-Pro-B Natriuret Pep (<125) pg/mL Total Protein (6.3-8.2) g/dL Albumin (3.5-5.0) g/dL Globulin (1.7-4.1) g/dL Albumin/Globulin Ratio (1.0-2.8) TSH (0.47-4.68) uIU/mL Discharge Plan Departure Patient Disposition: Home Clinical Impression: Atypical chest pain, Intermittent palpitations Discharge Date/Time: 02/17/20 17:21 Instructions: DI for Atypical Chest Pain, DI for Arrhythmias Activity Restrictions/Additional Instructions: You have been diagnosed with [atypical cardiac symptoms, resolved tachycardia/palpitations. EKG shows occasional PVCs without signs of heart attacks. Cardiac enzymes 2 sets were negative. Chest x-ray vascular congestion without definite pneumonia. There is no increase in white counts. Elevated serum glucose of 233. Very mildly elevated apart of liver function test ALT. Please continue with your current medications including aspirin daily.]. What to do: *Take your medications as directed. *Follow up with your primary care provider in 2-3 days, call for an appointment. Let them know you were seen in the ED and that we asked you to be seen in follow up. You probably need cardiac stress test that can be set up by her primary care physician out patiently. *Return to ED if you have any new, worsening, or concerning symptoms, such as [chest pain, breathing difficulty, unable to tolerate fluids, fever, or any acute concerns]. Prescriptions: No Action atorvastatin [Lipitor] 20 MG tablet 20 mg PO BEDTIME Qty: 0 RF: 0 cyclobenzaprine 10 MG tablet 10 mg PO Qty: 0 RF: 0 lisinopril-hydrochlorothiazide 20 MG/12.5 MG tablet 1 tab PO DAILY Qty: 0 RF: 0 acetaminophen 325 MG tablet 650 mg PO Q4HP PRNQty: 0 RF: 0 ibuprofen 800 MG tablet 800 mg PO TIDP PRNQty: 0 RF: 0 aspirin 325 MG tablet,delayed release (DR/EC) 325 mg PO QDAY Qty: 0 RF: 0 testosterone cypionate [Depo-Testosterone] 200 mg/mL oil RF: 0 metformin 750 mg tablet extended release 24 hr 750 mg PO BID RF: 0 albuterol sulfate 2.5 mg /3 mL (0.083 %) solution for nebulization 2.5 mg INHALATION Q2H PRN (Reason: shortness of breath or wheezing) Qty: 90 RF: 0 promethazine-codeine 6.25-10 mg/5 mL syrup 5 ml PO Q4-6H PRN (Reason: cough at hs) Qty: 118 RF: 0 methadone 10 mg tablet 10 mg PO BID PRN (Reason: Pain, Severe) RF: 0 Referrals: Cassi Johnson DO [Primary Care Provider] -
[2020-02-17 13:39] LABS: D Dimer < 200 ng/mL (<230)
[2020-02-17] MEDS: ASPIRIN 81 MG CHEW TAB 243 MG PO (15:07)
[2020-02-17 15:47] LABS: Creatine Kinase 120 U/L (55-170)
[2020-02-17 16:01] LABS: Troponin I < 0.012 ng/mL (0.01-0.034)
[2020-02-17 16:02] LABS: CKMB % Relative Index 1.8 % (1.5-5.0); Creatine Kinase MB 2.14 ng/mL (<2.37)
== END 2020-02-17 17:21 | disposition home or self-care (01) ==
PROVIDERS: Emergency Medicine; Emergency Provider Nurse Practitioner Family; Family Provider Family Medicine; PCP Family Medicine
DX: R07.89 Other chest pain (principal); R00.2 Palpitations; I10 Essential (primary) hypertension; E11.9 Type 2 diabetes mellitus without complications; R11.0 Nausea
CPT/HCPCS: 36415; 71045; 80053; 82550; 82553; 83735; 83880; 84443; 84484; 85025; 85379; 85610; 85730; 93005; 99284

== ENCOUNTER → 2024-10-10 15:53 | Outpatient (CLI) | payer OTHER, SELFPAY ==
--- NOTE | 2024-10-10 15:55 | DI.US.S_ITS ---
PROCEDURE: US SCROTUM INDICATIONS: PERINEAL PAIN AT DORSAL PENIS BASE.?SCROTUM/HERNIA TECHNIQUE: Real-time scanning was performed of the scrotum and testicles, with image documentation. Color and pulse Doppler interrogation was performed of both testicles. COMPARISON: None. FINDINGS: Right: Testicle is normal in size at 3.6 x 2.5 x 1.8 cm, and homogenous in echotexture. Epididymis is normal in overall size and morphology. No hydrocele or varicoceles. Overlying scrotal skin is normal in thickness. Left: Testicle is normal in size at 2.8 x 2.4 x 1.7 cm, and homogeneous in echotexture. Epididymis is normal in overall size and morphology. Small epididymal head cyst measuring 0.3 cm. No hydrocele or varicoceles. Overlying scrotal skin is normal in thickness. Doppler: Color and pulse Doppler demonstrate normal and symmetric arterial flow in both testicles. No inguinal hernias. IMPRESSION: 1. Source for pain is not identified. 2. No testicular mass. No hyperemia to suggest epididymitis. No testicular torsion. 3. No hydrocele or varicocele. 4. No inguinal hernia. Dictated by: Stuart Rodriguez M.D. on 10/10/2024 at 21:43 Approved by: Stuart Rodriguez M.D. on 10/10/2024 at 21:45
== END ==
PROVIDERS: Family Provider Family Medicine; PCP Family Medicine; Referring Provider Family Medicine; Visit Provider Family Medicine
DX: N50.3 Cyst of epididymis (principal); R10.2 Pelvic and perineal pain
CPT/HCPCS: 76870